=== PATIENT | female | born 1940 | race Caucasian/White ===

== ENCOUNTER → 2020-11-22 08:47 | Outpatient (BNVA) | payer MEDICARE, SELFPAY | PROVIDERS: PCP Nurse Practitioner Family; Visit Provider Nurse Practitioner Gerontology | DX: Z13.89 Encounter for screening for other disorder (principal) | CPT/HCPCS: Q3014 ==

== ENCOUNTER 2021-05-02 09:57 | Outpatient (REF) | payer MEDICARE, SELFPAY | END 2021-05-02 09:58 | disposition home or self-care (01) | LOC: HO.LAB 09:57 | PROVIDERS: PCP Nurse Practitioner Family; Visit Provider Nurse Practitioner Family | DX: Z13.89 Encounter for screening for other disorder (principal) ==

== ENCOUNTER 2022-02-28 11:09 | Outpatient (REF) | payer MEDICARE, SELFPAY ==
[2022-02-28 11:34] LABS: MANUAL DIFF FLAG NO
[2022-02-28 11:59] LABS: Basophils Percent Auto 0.2 % (0-2); Eosinophils Absolute Auto 0.3 X10*3/uL (0.0-0.4); Eosinophils Percent Auto 5.6 % (0-4); Hematocrit 30.6 % (37.0-47.0); Hemoglobin 8.9 g/dl (12.0-16.0); Imm Gran Abs Auto 0.02 X10*3/uL (0.00-0.03); Imm Gran Pct Auto 0.4 % (0.0-0.4); Lymphocytes Absolute Auto 1.6 X10*3/uL (1.2-4.9); Lymphocytes Percent Auto 33.5 % (20-40); Mean Corpuscular HGB Conc 29.1 g/dl (31.0-35.0); Mean Corpuscular Hemoglobin 22.6 pg (27.0-33.0); Mean Corpuscular Volume 77.9 fL (80.0-98.0); Mean Platelet Volume 11.8 fL (9.4-12.3); Monocytes Absolute Auto 0.3 X10*3/uL (0.1-1.2); Monocytes Percent Auto 6.2 % (2-11); Neutrophils Absolute Auto 2.5 x10*3/uL (2.0-8.3); Neutrophils Percent Auto 54.1 % (45-73); Platelet Count 121 X10*3/uL (160-400); Red Blood Count 3.93 X10*6/uL (4.20-5.50); Red Cell Distribution Width 17.1 % (11.0-16.0); White Blood Count 4.7 X10*3/uL (4.8-10.8)
[2022-02-28 12:13] LABS: Iron 36 mcg/dL (30-160); Percent Iron Saturation 9 % (15-50); Total Iron Binding Capacity 392 mcg/dL (228-428); Unsaturated Iron Binding 356 ug/dL
[2022-02-28 12:34] LABS: Thyroid Stimulating Hormone 2.81 uIU/mL (0.32-4.0)
[2022-02-28 12:40] LABS: Vitamin B12 590 pg/mL (200-900)
== END 2022-02-28 11:10 | disposition home or self-care (01) ==
LOC: HO.LAB 11:09
PROVIDERS: Visit Provider Nurse Practitioner Family
DX: E03.9 Hypothyroidism, unspecified (principal); D50.9 Iron deficiency anemia, unspecified
CPT/HCPCS: 36415; 82607; 83540; 84443; 85025

== ENCOUNTER 2022-06-11 09:26 | Outpatient (REF) | payer MEDICARE, SELFPAY ==
--- NOTE | ~2022-06-11 | XR_ITS ---
EXAMINATION: XR CHEST CLINICAL INFORMATION: Acute upper respiratory infection. COMPARISON: 05/15/2020 chest radiograph. TECHNIQUE: 2 views of the chest were obtained. FINDINGS: No significant abnormality is noted involving the heart, lungs, mediastinum, bony thorax or soft tissues. XR/XR chest 2V IMPRESSION: No acute cardiopulmonary process.
[2022-06-11 13:23] LABS: Influenza A PCR NEGATIVE (Negative); Influenza B PCR NEGATIVE (Negative); Resp Syncy Virus RNA Qual PCR NEGATIVE (Negative); SARS COV2 PCR INHOUSE NEGATIVE (Negative)
== END 2022-06-11 09:27 | disposition home or self-care (01) ==
LOC: HO.HMGCX 09:26
PROVIDERS: PCP Nurse Practitioner Family; Visit Provider Physician Assistant
DX: Z20.822 Contact with and (suspected) exposure to COVID-19 (principal); J06.9 Acute upper respiratory infection, unspecified
CPT/HCPCS: 0241U; 71046

== ENCOUNTER 2022-11-06 10:03 | Inpatient (IN) | payer MEDICARE, SELFPAY ==
--- NOTE | ~2022-11-06 | US_ITS ---
EXAMINATION: US RETROPERITONEAL LIMITED (RENAL ONLY) CLINICAL INFORMATION: Acute kidney injury.. COMPARISON: 11/09/2014 TECHNIQUE: Real-time sonographic imaging of the kidneys. FINDINGS: RIGHT KIDNEY: 8.9 x 4.9 x 4.5 cm (SAG x AP x TRV). The kidney is normal in size, contour, and echogenicity. Renal cortical thickness is normal. No calculi or focal parenchymal lesions. No hydronephrosis. LEFT KIDNEY: 10 x 4.3 x 5.1 cm (SAG x AP x TRV). The kidney is normal in size, contour, and echogenicity. Renal cortical thickness is normal. No calculi or focal parenchymal lesions. No hydronephrosis. US/US renal BI IMPRESSION: Normal appearance of the kidneys.
[2022-11-06 10:08] VITALS: BP 152/56; PULSE 86; RESP 18; TEMP 36.7; O2SAT 98; BMI 25.7
--- NOTE | 2022-11-06 10:10 | ECG_ITS ---
Test Reason : abnormal labs Blood Pressure : / mmHG Vent. Rate : 078 BPM Atrial Rate : 078 BPM P-R Int : 148 ms QRS Dur : 068 ms QT Int : 360 ms P-R-T Axes : 046 -04 068 degrees QTc Int : 410 ms Normal sinus rhythm Normal ECG When compared with ECG of 23-APR-2017 16:52, Nonspecific T wave abnormality, improved in Anterolateral leads Referred By: Generic ED Physician Electronically Signed By:Beto Walker
[2022-11-06 10:25] LABS: MANUAL DIFF FLAG NO
[2022-11-06 10:28] LABS: Basophils Percent Auto 0.4 % (0-2); Eosinophils Absolute Auto 0.3 X10*3/uL (0.0-0.4); Hematocrit 31.3 % (37.0-47.0); Hemoglobin 9.2 g/dl (12.0-16.0); Imm Gran Abs Auto 0.03 X10*3/uL (0.00-0.03); Imm Gran Pct Auto 0.6 % (0.0-0.4); Lymphocytes Absolute Auto 2.1 X10*3/uL (1.2-4.9); Lymphocytes Percent Auto 43.1 % (20-40); Mean Corpuscular HGB Conc 29.4 g/dl (31.0-35.0); Mean Corpuscular Hemoglobin 22.8 pg (27.0-33.0); Mean Corpuscular Volume 77.5 fL (80.0-98.0); Monocytes Absolute Auto 0.4 X10*3/uL (0.1-1.2); Monocytes Percent Auto 7.1 % (2-11); Neutrophils Absolute Auto 2.1 x10*3/uL (2.0-8.3); Neutrophils Percent Auto 42.8 % (45-73); Platelet Count 101 X10*3/uL (160-400); Red Blood Count 4.04 X10*6/uL (4.20-5.50); Red Cell Distribution Width 16.6 % (11.0-16.0)
[2022-11-06 11:20] LABS: Influenza A PCR NEGATIVE (Negative); Influenza B PCR NEGATIVE (Negative); Resp Syncy Virus RNA Qual PCR NEGATIVE (Negative); SARS COV2 PCR INHOUSE NEGATIVE (Negative)
--- NOTE | 2022-11-06 11:34 | ED_ITS ---
HPI - Recheck/Abnormal Lab/Rx General Chief Complaint: Recheck/Abnormal Lab/Rx Stated Complaint: High Potassium Time Seen by Provider: 11/06/22 10:42 Source: patient and family Mode of arrival: ambulatory History of Present Illness HPI narrative: 82-year-old female currently under care at [facility] has patient has a history of lymphoma and leukemia for which she is currently taking oral medication. She was instructed to come into the emergency room for acute labs that showed renal failure and elevated potassium. Patient herself denies any fever, chills, nausea, vomiting, shortness of breath, chest pain/palpitations and states that she has been eating and drinking normally. Patient denies any urinary pain/burning/frequency. The daughter endorses that patient is incontinent of urine. Also, patient has completed a course of antibiotics recently that was prescribed by her primary care provider. The daughter who is at bedside states that they have been keeping an eye on her but reports that she has been unsteady on her feet for approximately 3 days. Related Data Home Medications Medication Instructions Recorded Confirmed lorazepam 1 mg tablet 1 mg PO DAILY PRN 11/22/20 11/22/20 pen needle, diabetic 32 gauge x #50 ea 11/22/20 11/22/20 (BD Ultra-Fine Laura Pen Needle) quetiapine 25 mg tablet See Rx Instructions PO QID 11/22/20 11/22/20 Previous Rx's Medication Instructions Recorded atorvastatin 80 mg tablet 80 mg PO DAILY #90 tabs 11/22/20 insulin glargine 100 unit/mL (3 8 unit (0.08 mL) subcut DAILY 90 11/23/21 mL) subcutaneous pen (Lantus days #15 mL Solostar U-100 Insulin) metformin 500 mg tablet,extended 500 mg PO BID #180 caps 12/13/21 release 24 hr repaglinide 0.5 mg tablet See Rx Instructions PO TID 90 days 02/08/22 #450 tabs azithromycin 250 mg tablet See Rx Instructions PO .COMPLEX #6 06/11/22 tabs benzonatate 100 mg capsule 100 mg PO BID PRN cough #14 caps 06/11/22 Allergies Allergy/AdvReac Type Severity Reaction Status Date / Time prednisone [PREDNISONE] Allergy Severe ANAPHYLAXIS, Unverified 06/11/22 08:44 mental status change Amox Allergy Unknown ineffective Uncoded 06/11/22 08:44 Review of Systems Review of Systems: Pertinent positives and negatives as stated in HPI 10 point review of systems is otherwise negative. [facility] Past Medical History Source: nursing notes reviewed Medical History Controlled diabetes mellitus without complication, with long-term current use of insulin Controlled diabetes mellitus without complication, without long-term current use of insulin Essential hypertension Hyperlipidemia LDL goal <70 Hypothyroidism Leukemia Lymphoma Stroke Social History Social History Household Members: Spouse Household Members Other:: Spouse: Darnell Advance Directives: No Physical Exam Vital Signs: Vital Signs: Last Vital Signs Temp 98.0 F 11/06/22 10:08 Pulse 69 11/06/22 12:00 Resp 17 11/06/22 12:00 BP 150/54 H 11/06/22 12:00 Pulse Ox 100 11/06/22 12:00 O2 Del Method 11/06/22 12:00 BMI result Body Mass Index 25.7 VITAL SIGNS: Reviewed. GENERAL: Well developed, well nourished, in no acute distress. HEAD: Normocephalic/atraumatic EYES: PERRLA, EOMI EARS: Ext canals without abnormality OROPHARYNX: no oral lesions noted, posterior pharynx clear NECK: Supple, no adenopathy LUNGS: Normal breath sounds. No adventitious sounds or accessory muscle use. SpO2<98> CARDIOVASCULAR: Regular rate and rhythm with systolic murmur, no JVD or lower extremity edema. ABDOMEN: Soft, non-tender, non-distended with bowel sounds. MUSCULOSKELETAL: No tenderness, deformities, or effusions noted on gross inspection. EXTREMITIES: No cyanosis, clubbing or edema. SKIN: Inspection of the skin reveals no rashes NEUROLOGIC: Alert and oriented x 4. Strength and sensation to light touch were grossly intact x 4, no facial asymmetry, no pronator drift, cranial nerves 2-12 are grossly intact.. Course Course Course Narrative: On re-evaluation, patient continues to be chest pain-free, troponin #2 is flat at 90.2, BMP although improved still demonstrates a potassium level of 5.7 and minor improvement renal function. I am attempted to get records from [facility]. 1432: I gave patient 40 mg of Lasix to help promote removal of potassium. Magnesium levels are within normal limits. 1630: Signed out to Dr. Wheeler to follow-up on 3rd BMP after the Lasix with recommendations that if potassium has continued to decrease patient is a safe discharge to home as she is otherwise asymptomatic and can follow-up with her primary care provider 1st thing in the morning. Medications Administered Discontinued Medications Generic Name Dose Route Start Last Admin Trade Name Daisy PRN Reason Stop Dose Admin Dextrose 25 gm 11/06/22 11:46 11/06/22 12:15 Dextrose 50 % 25 Gm/50 Ml Syringe IVPUSH 11/06/22 11:47 25 gm ONCE ONE Administration Furosemide 40 mg 11/06/22 14:30 11/06/22 14:46 Furosemide 40 Mg/4 Ml Vial IVPUSH 11/06/22 14:31 40 mg ONCE ONE Administration Protocol Calcium Gluconate 2 gm in 100 mls @ 50 mls/hr 11/06/22 11:46 11/06/22 14:16 Calcium Gluconate IV 11/06/22 13:45 Infused ONCE ONE Infusion Sodium Chloride 1,000 mls @ 999 mls/hr 11/06/22 12:00 11/06/22 13:41 Ns IV 11/06/22 13:00 Infused .Q1H1M ARELI Infusion Insulin Human Regular 5 unit 11/06/22 11:46 11/06/22 12:14 Insulin Regular, Human 100 Unit/Ml 3 Ml Vial IVPUSH 11/06/22 11:47 5 unit ONCE ONE Administration Medical Decision Making Medical Decision Making [facility] Narrative: 82-year-old female is sent in for evaluation abnormal lab work and on history is noted to have recent gait unsteadiness and she has not completely fall in and there has been no history of head strike. Differential Diagnosis Urinary tract infection, obstructive uropathy, medication side effect, will rule out infection or new anemia Lab Data [facility] Lab Attestation statement: I reviewed the patient's lab results. SRIRAM/hyperkalemia: There is noted peaked T-waves, ordered calcium gluconate /insulin/D50 and will repeat EKG. Troponin-98.2, patient is not having chest pain, EKG does not demonstrate ischemic changes Result Diagrams: 11/06/22 10:19 11/06/22 13:44 Labs: Lab Results 12/21/22 12/21/22 12/21/22 Range/Units 10:19 10:19 10:19 WBC 5.0 (4.8-10.8) X10*3/uL RBC 4.04 L (4.20-5.50) X10*6/uL Hgb 9.2 L (12.0-16.0) g/dl Hct 31.3 L (37.0-47.0) % MCV 77.5 L (80.0-98.0) fL MCH 22.8 L (27.0-33.0) pg MCHC 29.4 L (31.0-35.0) g/dl RDW 16.6 H (11.0-16.0) % Plt Count 101 L (160-400) X10*3/uL MPV 12.0 (9.4-12.3) fL Immature Gran % (Auto) 0.6 H (0.0-0.4) % Neut % (Auto) 42.8 L (45-73) % Lymph % (Auto) 43.1 H (20-40) % [place] % (Auto) 7.1 (2-11) % Eos % (Auto) 6.0 H (0-4) % Baso % (Auto) 0.4 (0-2) % Lymph # (Auto) 2.1 (1.2-4.9) X10*3/uL [place] # (Auto) 0.4 (0.1-1.2) X10*3/uL Eos # (Auto) 0.3 (0.0-0.4) X10*3/uL Baso # (Auto) 0.0 (0.0-0.2) X10*3/uL Abs Immat Gran (auto) 0.03 (0.00-0.03) X10*3/uL Absolute Neuts (auto) 2.1 (2.0-8.3) x10*3/uL Absolute Nucleated RBC 0.000 (0.0-0.012) X10*3/uL Nucleated RBC % (auto) 0.0 (0.0-0.2) /100WBC Sodium 137 (135-145) mmol/L Potassium 6.7 H* (3.3-5.1) mmol/L Chloride 110 H (96-108) mmol/L Carbon Dioxide 22 (22-29) mmol/L Anion Gap 12 (12-20) BUN 39 H (9-16) mg/dL Creatinine 1.75 H (0.5-1.4) mg/dL Estim Creat Clear Calc 23.0 Estimated GFR 28 Random Glucose 214 H (60-115) mg/dL Calcium 9.3 (8.4-10.2) mg/dL Magnesium 1.8 (1.6-2.6) mg/dL Total Bilirubin 0.4 (0.0-1.0) mg/dL Direct Bilirubin < 0.2 (0.0-0.5) mg/dL AST 23 (5-31) U/L ALT 18 (0-31) U/L Alkaline Phosphatase 85 (39-117) U/L Troponin I High Sens 98.2 H* (<3.5-17.0) ng/L B-Natriuretic Peptide (<100) pg/mL Total Protein 6.7 (6.5-8.0) g/dL Albumin 4.2 (3.5-5.0) g/dL Lipase 26 (8-78) U/L Urine Color Urine Appearance Urine pH (5.0-9.0) Ur Specific [place] (1.005-1.025) Urine Protein (Neg-Trace) mg/dL Urine Glucose (UA) (Negative) mg/dL Urine Ketones (Negative) mg/dL Urine Blood (Negative) Urine Nitrite (Negative) Ur Leukocyte Esterase (Negative) Influenza Type A (PCR) (Negative) Influenza Type B (PCR) (Negative) RSV RNA Qual (PCR) (Negative) SARS-CoV-2 RNA (RT-PCR) (Negative) 11/06/22 11/06/22 11/06/22 Range/Units 10:19 10:19 12:00 WBC (4.8-10.8) X10*3/uL RBC (4.20-5.50) X10*6/uL Hgb (12.0-16.0) g/dl Hct (37.0-47.0) % MCV (80.0-98.0) fL MCH (27.0-33.0) pg MCHC (31.0-35.0) g/dl RDW (11.0-16.0) % Plt Count (160-400) X10*3/uL MPV (9.4-12.3) fL Immature Gran % (Auto) (0.0-0.4) % Neut % (Auto) (45-73) % Lymph % (Auto) (20-40) % [place] % (Auto) (2-11) % Eos % (Auto) (0-4) % Baso % (Auto) (0-2) % Lymph # (Auto) (1.2-4.9) X10*3/uL [place] # (Auto) (0.1-1.2) X10*3/uL Eos # (Auto) (0.0-0.4) X10*3/uL Baso # (Auto) (0.0-0.2) X10*3/uL Abs Immat Gran (auto) (0.00-0.03) X10*3/uL Absolute Neuts (auto) (2.0-8.3) x10*3/uL Absolute Nucleated RBC (0.0-0.012) X10*3/uL Nucleated RBC % (auto) (0.0-0.2) /100WBC Sodium (135-145) mmol/L Potassium (3.3-5.1) mmol/L Chloride (96-108) mmol/L Carbon Dioxide (22-29) mmol/L Anion Gap (12-20) BUN (9-16) mg/dL Creatinine (0.5-1.4) mg/dL Estim Creat Clear Calc Estimated GFR Random Glucose (60-115) mg/dL Calcium (8.4-10.2) mg/dL Magnesium (1.6-2.6) mg/dL Total Bilirubin (0.0-1.0) mg/dL Direct Bilirubin (0.0-0.5) mg/dL AST (5-31) U/L ALT (0-31) U/L Alkaline Phosphatase (39-117) U/L Troponin I High Sens (<3.5-17.0) ng/L B-Natriuretic Peptide 20 (<100) pg/mL Total Protein (6.5-8.0) g/dL Albumin (3.5-5.0) g/dL Lipase (8-78) U/L Urine Color Yellow Urine Appearance Clear Urine pH 5.0 (5.0-9.0) Ur Specific [place] 1.020 (1.005-1.025) Urine Protein Negative (Neg-Trace) mg/dL Urine Glucose (UA) Negative (Negative) mg/dL Urine Ketones Negative (Negative) mg/dL Urine Blood Negative (Negative) Urine Nitrite Negative (Negative) Ur Leukocyte Esterase Negative (Negative) Influenza Type A (PCR) NEGATIVE (Negative) Influenza Type B (PCR) NEGATIVE (Negative) RSV RNA Qual (PCR) NEGATIVE (Negative) SARS-CoV-2 RNA (RT-PCR) NEGATIVE (Negative) 11/06/22 11/06/22 Range/Units 13:44 13:44 WBC (4.8-10.8) X10*3/uL RBC (4.20-5.50) X10*6/uL Hgb (12.0-16.0) g/dl Hct (37.0-47.0) % MCV (80.0-98.0) fL MCH (27.0-33.0) pg MCHC (31.0-35.0) g/dl RDW (11.0-16.0) % Plt Count (160-400) X10*3/uL MPV (9.4-12.3) fL Immature Gran % (Auto) (0.0-0.4) % Neut % (Auto) (45-73) % Lymph % (Auto) (20-40) % [place] % (Auto) (2-11) % Eos % (Auto) (0-4) % Baso % (Auto) (0-2) % Lymph # (Auto) (1.2-4.9) X10*3/uL [place] # (Auto) (0.1-1.2) X10*3/uL Eos # (Auto) (0.0-0.4) X10*3/uL Baso # (Auto) (0.0-0.2) X10*3/uL Abs Immat Gran (auto) (0.00-0.03) X10*3/uL Absolute Neuts (auto) (2.0-8.3) x10*3/uL Absolute Nucleated RBC (0.0-0.012) X10*3/uL Nucleated RBC % (auto) (0.0-0.2) /100WBC Sodium 140 (135-145) mmol/L Potassium 5.7 H (3.3-5.1) mmol/L Chloride 114 H (96-108) mmol/L Carbon Dioxide 22 (22-29) mmol/L Anion Gap 10 L (12-20) BUN 36 H (9-16) mg/dL Creatinine 1.46 H (0.5-1.4) mg/dL Estim Creat Clear Calc 27.6 Estimated GFR 34 Random Glucose 85 (60-115) mg/dL Calcium 9.4 (8.4-10.2) mg/dL Magnesium (1.6-2.6) mg/dL Total Bilirubin (0.0-1.0) mg/dL Direct Bilirubin (0.0-0.5) mg/dL AST (5-31) U/L ALT (0-31) U/L Alkaline Phosphatase (39-117) U/L Troponin I High Sens 90.6 H* (<3.5-17.0) ng/L B-Natriuretic Peptide (<100) pg/mL Total Protein (6.5-8.0) g/dL Albumin (3.5-5.0) g/dL Lipase (8-78) U/L Urine Color Urine Appearance Urine pH (5.0-9.0) Ur Specific [place] (1.005-1.025) Urine Protein (Neg-Trace) mg/dL Urine Glucose (UA) (Negative) mg/dL Urine Ketones (Negative) mg/dL Urine Blood (Negative) Urine Nitrite (Negative) Ur Leukocyte Esterase (Negative) Influenza Type A (PCR) (Negative) Influenza Type B (PCR) (Negative) RSV RNA Qual (PCR) (Negative) SARS-CoV-2 RNA (RT-PCR) (Negative) Independent Interpretation I performed an independent interpretation of an: EKG Interpretation: Normal sinus rhythm, HR -78, no STEMI, apparent peaked T-waves, NV/QRS/QTC are within normal limits. 1254: NSR, HR-69, NO STEMI, T-WAVES HAVE IMPROVED, NV/QRS/QTC ARE WITHIN NORMAL LIMITS. Independent Historian Clinical information obtained from an independent historian. History obtained from or confirmed by: Other Daughter External Record Review External record reviewed: Prior outpatient labs Chronic Conditions Patient?s care impacted by: Diabetes, Hypertension and Cancer Critical Care Time Critical Care Time Critical Care Time: Yes Total Critical Care Time: 60 Attestation: I personally attest to this time spent taking care of the patient. Discharge Plan Discharge Clinical Impression: SRIRAM (acute kidney injury), Hyperkalemia Patient Disposition: Still a Patient Prescriptions: No Action Lantus Solostar U-100 Insulin 100 unit/mL (3 mL) insulin pen 8 unit subcut DAILY 90 Days Qty: 15 0RF metformin 500 mg tablet extended release 24 hr 500 mg PO BID Qty: 180 4RF repaglinide 0.5 mg tablet See Rx Instructions PO TID 90 Days Qty: 450 0RF Rx Instructions: 1 tablet breakfast, 2 tablet lunch and dinner PO 3 times a day; administer within 30 minutes of a meal or snack benzonatate 100 mg capsule 100 mg PO BID PRN (Reason: cough) Qty: 14 0RF azithromycin 250 mg tablet See Rx Instructions PO .COMPLEX Qty: 6 0RF Rx Instructions: For 250 mg dose pack: take 500 mg today (day 1), then 250 mg for 4 days (days 2-5) PO (DME) pen needle, diabetic [BD Ultra-Fine Laura Pen Needle] 32 gauge x 5/32 needle See Rx Instructions .ROUTE .MEDSUPPLY Qty: 50 Rx Instructions: As directed quetiapine 25 mg tablet See Rx Instructions PO QID Rx Instructions: 25 mg 1/2 tablet PO 4 times a day; lorazepam 1 mg tablet 1 mg PO DAILY PRN atorvastatin 80 mg tablet 80 mg PO DAILY Qty: 90 1RF
[2022-11-06 11:37] LABS: Troponin-I High Sensitivity 98.2 ng/L (<3.5-17.0)
[2022-11-06 11:40] LABS: Alanine Aminotransferase 18 U/L (0-31); Albumin Level 4.2 g/dL (3.5-5.0); Alkaline Phosphatase 85 U/L (39-117); Anion Gap 12 (12-20); Aspartate Amino Transferase 23 U/L (5-31); Bilirubin Direct < 0.2 mg/dL (0.0-0.5); Bilirubin Total 0.4 mg/dL (0.0-1.0); Blood Urea Nitrogen 39 mg/dL (9-16); Calcium 9.3 mg/dL (8.4-10.2); Carbon Dioxide 22 mmol/L (22-29); Chloride 110 mmol/L (96-108); Estimated Glomerular Filt Rate 28; Glucose Random 214 mg/dL (60-115); Lipase 26 U/L (8-78); Potassium 6.7 mmol/L (3.3-5.1); Sodium 137 mmol/L (135-145); Total Protein 6.7 g/dL (6.5-8.0)
[2022-11-06 12:00] VITALS: BP 150/54; PULSE 69; RESP 17; O2SAT 100
[2022-11-06 12:09] LABS: Appearance Urine Clear; Color Urine Yellow; Glucose Urine UA Negative (Negative); Leukocyte Esterase Urine Negative (Negative); Nitrite Urine Negative (Negative); Urine Blood Negative (Negative); Urine Ketones Negative (Negative); Urine Protein Negative (Neg-Trace)
[2022-11-06] MEDS: Insulin Regular, Human 100 UNIT/ML 3 ML VIAL IVPUSH (12:14)
[2022-11-06] MEDS: Dextrose 50 % 25 GM/50 ML SYRINGE IVPUSH (12:15)
[2022-11-06] MEDS: Calcium Gluconate/NaCl,Iso-Osm 2 GM/100 ML PLAST..BAG IV (12:15)
[2022-11-06] MEDS: 0.9 % Sodium Chloride 1,000 ML 999 ML IV (12:16)
--- NOTE | 2022-11-06 12:27 | PC.NURSE ---
pt a&ox2 - at baseline per daughter, vss, 22G IV placed L AC, medicated per provider order. no new orders at this time.
[2022-11-06 12:42] LABS: Magnesium 1.8 mg/dL (1.6-2.6)
--- NOTE | 2022-11-06 12:51 | ECG_ITS ---
Test Reason : repeat Blood Pressure : / mmHG Vent. Rate : 069 BPM Atrial Rate : 069 BPM P-R Int : 160 ms QRS Dur : 070 ms QT Int : 366 ms P-R-T Axes : 040 018 124 degrees QTc Int : 392 ms Normal sinus rhythm Nonspecific T wave abnormality Abnormal ECG When compared with ECG of 06-NOV-2022 10:27, Nonspecific T wave abnormality now evident in Inferior leads Referred By: Jerri Francis Electronically Signed By:Beto Walker
[2022-11-06 12:58] LABS: B Type Natriuretic Peptide 20 pg/mL (<100)
[2022-11-06 14:08] LABS: Anion Gap 10 (12-20); Blood Urea Nitrogen 36 mg/dL (9-16); Calcium 9.4 mg/dL (8.4-10.2); Carbon Dioxide 22 mmol/L (22-29); Chloride 114 mmol/L (96-108); Creatinine Clr Calc Pharmacy 27.6; Estimated Glomerular Filt Rate 34; Glucose Random 85 mg/dL (60-115); Potassium 5.7 mmol/L (3.3-5.1); Sodium 140 mmol/L (135-145)
[2022-11-06 14:24] LABS: Troponin-I High Sensitivity 90.6 ng/L (<3.5-17.0)
[2022-11-06] MEDS: Furosemide 40 MG/4 ML VIAL IVPUSH (14:46)
--- NOTE | 2022-11-06 15:04 | PC.NURSE ---
per daughter - labs 07/30/22, K - 5, BUN - 26, CRE - 1.3. provider notified.
[2022-11-06 16:47] LABS: Anion Gap 14 (12-20); Blood Urea Nitrogen 37 mg/dL (9-16); Calcium 9.9 mg/dL (8.4-10.2); Carbon Dioxide 20 mmol/L (22-29); Chloride 113 mmol/L (96-108); Creatinine Clr Calc Pharmacy 25.2; Estimated Glomerular Filt Rate 31; Glucose Random 66 mg/dL (60-115); Potassium 5.8 mmol/L (3.3-5.1); Sodium 141 mmol/L (135-145)
[2022-11-06 17:09] VITALS: BP 164/57; PULSE 73; RESP 22; O2SAT 97
[2022-11-06] MEDS: Albuterol Sulfate (0.083%) 2.5 MG/3 ML VIAL.NEB 10 MG INHALE (17:14)
[2022-11-06 17:15] VITALS: PULSE 72; RESP 17; O2SAT 98
[2022-11-06] MEDS: Sodium Zirconium Cyclosilicate 10 GM POWD.PACK PO (17:58)
--- NOTE | 2022-11-06 18:15 | P.HPHOSP_ITS ---
History of Present Illness Date of Service: 11/06/22 Chief Complaint: Hyperkalemia 82 year old female with past medical history as listed below inlcuding history of lymphoma and leukemia (no details), DM, h/o stroke with residual aphasia and apraxia who had routine lab work done at her oncology office at [facility] and was called for a critical potassium and Creatinine level but was told she could wait till the next day to go to ED. She came in at 10 this morning and her potassium was 6.7. She was treated with insulin, calcium gluconate, lasix , albuterol Neb and repeat K at 5.8 at 1600 and is now getting Lokelma. Her Creatine ranges from 1.4 to 1.6, baseline is not available (she goes to [facility]). Apart from abnrmal labs she has no other complaint, she takes no K supplement or consumes food high in K Review of Systems Review of Systems: Gen: no fever Resp: no sob, no cough CV: no chest, no OBREGON, no leg edema GI: No n/v, no abd pain Neuro: No confusion Yes all other systems are reviewed and are negative ON LICENSE OF [facility] Medical History Controlled diabetes mellitus without complication, with long-term current use of insulin Controlled diabetes mellitus without complication, without long-term current use of insulin Essential hypertension Hyperlipidemia LDL goal <70 Hypothyroidism Leukemia Lymphoma Stroke Pertinent family history: no mention of chronic kidney disease Social History Household Members: Spouse Household Members Other:: Spouse: Darnell Advance Directives: No Meds Allergies Allergy/AdvReac Type Severity Reaction Status Date / Time prednisone [PREDNISONE] Allergy Severe ANAPHYLAXIS, Unverified 06/11/22 08:44 mental status change Amox Allergy Unknown ineffective Uncoded 06/11/22 08:44 Home Medications Medication Instructions Recorded Confirmed Last Taken Type lorazepam 1 mg tablet 1 mg PO DAILY PRN 11/22/20 11/22/20 Unknown History pen needle, diabetic 32 gauge x #50 ea 11/22/20 11/22/20 Unknown History (BD Ultra-Fine Laura Pen Needle) quetiapine 25 mg tablet See Rx Instructions PO QID 11/22/20 11/22/20 Unknown History Physical Exam Vital Signs and Narrative: Vital Signs: Last Vital Signs Temp 98.0 F 11/06/22 10:08 Pulse 72 11/06/22 17:15 Resp 17 11/06/22 17:15 BP 164/57 H 11/06/22 17:09 Pulse Ox 97 11/06/22 17:09 O2 Del Method 11/06/22 17:09 BMI result Body Mass Index 25.7 Const: Other: Constitutional: Alert, in no distress, Mental Status: Oriented to person, place and time. Eyes: Pupils are equal, round and reactive to light. Ear, Nose and Throat: Oropharynx clear, mucous membranes moist. Ears and nose without eformities. Trachea midline. Respiratory: Clear to auscultation. No wheezing, rales or rhonchi. Cardiovascular: S1 S2 regular. No murmurs, rubs or gallops. Gastrointestinal: Abdomen soft, non-tender, non-distended. Normal bowel sounds.? Neurologic: Cranial nerves II-XII grossly intact. No focal neurological deficits. Moves all extremities spontaneously.? Skin: No rashes or lesions.? Musculoskeletal: No cyanosis or clubbing. Psychiatric: Normal mood and affect? Results Labs CBC and Chem 7: 11/06/22 10:19 11/06/22 16:24 Labs: Laboratory Results - last 24 hr 11/06/22 11/06/22 11/06/22 10:19 10:19 10:19 MCV 77.5 L MCH 22.8 L MCHC 29.4 L RDW 16.6 H Plt Count 101 L MPV 12.0 Immature Gran % (Auto) 0.6 H Neut % (Auto) 42.8 L Lymph % (Auto) 43.1 H [place] % (Auto) 7.1 Eos % (Auto) 6.0 H Baso % (Auto) 0.4 Lymph # (Auto) 2.1 [place] # (Auto) 0.4 Eos # (Auto) 0.3 Baso # (Auto) 0.0 Abs Immat Gran (auto) 0.03 Absolute Neuts (auto) 2.1 Absolute Nucleated RBC 0.000 Nucleated RBC % (auto) 0.0 Anion Gap 12 Estim Creat Clear Calc 23.0 Estimated GFR 28 Random Glucose 214 H Calcium 9.3 Magnesium 1.8 Total Bilirubin 0.4 Direct Bilirubin < 0.2 AST 23 ALT 18 Alkaline Phosphatase 85 Troponin I High Sens 98.2 H* B-Natriuretic Peptide Total Protein 6.7 Albumin 4.2 Lipase 26 Urine Color Urine Appearance Urine pH Ur Specific [place] Urine Protein Urine Glucose (UA) Urine Ketones Urine Blood Urine Nitrite Ur Leukocyte Esterase Influenza Type A (PCR) Influenza Type B (PCR) RSV RNA Qual (PCR) SARS-CoV-2 RNA (RT-PCR) 11/06/22 11/06/22 11/06/22 10:19 10:19 12:00 MCV MCH MCHC RDW Plt Count MPV Immature Gran % (Auto) Neut % (Auto) Lymph % (Auto) [place] % (Auto) Eos % (Auto) Baso % (Auto) Lymph # (Auto) [place] # (Auto) Eos # (Auto) Baso # (Auto) Abs Immat Gran (auto) Absolute Neuts (auto) Absolute Nucleated RBC Nucleated RBC % (auto) Anion Gap Estim Creat Clear Calc Estimated GFR Random Glucose Calcium Magnesium Total Bilirubin Direct Bilirubin AST ALT Alkaline Phosphatase Troponin I High Sens B-Natriuretic Peptide 20 Total Protein Albumin Lipase Urine Color Yellow Urine Appearance Clear Urine pH 5.0 Ur Specific [place] 1.020 Urine Protein Negative Urine Glucose (UA) Negative Urine Ketones Negative Urine Blood Negative Urine Nitrite Negative Ur Leukocyte Esterase Negative Influenza Type A (PCR) NEGATIVE Influenza Type B (PCR) NEGATIVE RSV RNA Qual (PCR) NEGATIVE SARS-CoV-2 RNA (RT-PCR) NEGATIVE 11/06/22 11/06/22 11/06/22 13:44 13:44 16:24 MCV MCH MCHC RDW Plt Count MPV Immature Gran % (Auto) Neut % (Auto) Lymph % (Auto) [place] % (Auto) Eos % (Auto) Baso % (Auto) Lymph # (Auto) [place] # (Auto) Eos # (Auto) Baso # (Auto) Abs Immat Gran (auto) Absolute Neuts (auto) Absolute Nucleated RBC Nucleated RBC % (auto) Anion Gap 10 L 14 Estim Creat Clear Calc 27.6 25.2 Estimated GFR 34 31 Random Glucose 85 66 Calcium 9.4 9.9 Magnesium Total Bilirubin Direct Bilirubin AST ALT Alkaline Phosphatase Troponin I High Sens 90.6 H* B-Natriuretic Peptide Total Protein Albumin Lipase Urine Color Urine Appearance Urine pH Ur Specific [place] Urine Protein Urine Glucose (UA) Urine Ketones Urine Blood Urine Nitrite Ur Leukocyte Esterase Influenza Type A (PCR) Influenza Type B (PCR) RSV RNA Qual (PCR) SARS-CoV-2 RNA (RT-PCR) Assessment and Plan (1) SRIRAM (acute kidney injury): Status: Acute (2) Hyperkalemia: Status: Acute (3) Controlled diabetes mellitus without complication, with long-term current use of insulin: Status: Acute (4) Essential hypertension: Status: Acute (5) Hyperlipidemia LDL goal <70: Status: Acute (6) Controlled diabetes mellitus without complication, without long-term current use of insulin: Status: Acute Plan 82 year old female with past medical history as listed below inlcuding history of lymphoma and leukemia (no details), DM, h/o stroke with residual aphasia and apraxia here with SRIRAM and hyperkalemia #Hyperkalemia--liekely related to kidney failure--treated thus far with lokelma, insulin, calcium gluconate, high dose albuterol. Repeat labs later and give additional Lokelma, involve nephrology, need to rule out RTA4 #SRIRAM--baseline Cr not well defined, but I suspect at least CKD 2, we'll need to compare to [facility] record #elevated troponin I 98 -->90, ECG no acute ischemic changes, no symptoms likely from renal failure, no further testing at this time #Diabetes--Hold metformin, SSI, continue home dose of lantus 8 #HLD--Lipitor #Anxiety--Ativan Full code DVT: heparin obs till tomorrow med rec not yet done Time Spent With Patient Time: Total time managing care of this patient today ____ minutes. Quality Stroke Does the patient have a stroke diagnosis?: No VTE Prior VTE?: No VTE Risk Level:: Medical - moderate - high VTE Device Contraindication: Treatment Not Indicated VTE Drug Contraindication: N/A - Med Ordered
[2022-11-06 18:43] VITALS: BP 165/51; PULSE 76; RESP 16
--- NOTE | 2022-11-06 18:55 | PHA.MEDREC ---
Pharmacy Consult ? Medication Reconciliation Pharmacy has completed the medication reconciliation. Spoke with patient, daughter and spouse. patient took all AM medications. Patients provided a list and [facility] to [facility].
[2022-11-06 20:29] LABS: Anion Gap 15 (12-20); Blood Urea Nitrogen 37 mg/dL (9-16); Calcium 9.5 mg/dL (8.4-10.2); Carbon Dioxide 19 mmol/L (22-29); Chloride 110 mmol/L (96-108); Creatinine Clr Calc Pharmacy 23.5; Estimated Glomerular Filt Rate 29; Glucose Random 216 mg/dL (60-115); Potassium 5.8 mmol/L (3.3-5.1); Sodium 138 mmol/L (135-145)
[2022-11-06 20:56] VITALS: BP 132/56; PULSE 83; RESP 17; TEMP 37.2; O2SAT 96
--- NOTE | 2022-11-06 21:31 | MHC.CM.PN ---
CATHERINE 11/06. Lives with and daughter, Gena [place] ([phone]). Pt has h/o CVA and expressive aphasia/apraxia. HCP is daughter Gena. Copy at home. Pt lives with her and daughter. When asked, pt said she lives with her parents and siblings. No documented dementia, ? aphasia/apraxia. Pt uses a walker/No services. Pfizer x2 & 3 boosters. Daughter is concerned about mobility, telling CM that patient has been more unsteady on her feet over the past few days and is requesting PT evaluation. Dr. Ocasio aware. Pt and daughter agreeable to home PT only. Has has [facility] in the past. Will place referrals. Daughter refuses STR, as she feels her mother cannot express herself fully and the family is providing all her care at home. States she feels they are doing well and do not need any services. CM will follow for discharge planning.
[2022-11-06 21:48] LABS: Glucose, Whole Blood 243 mg/dL (60-115)
[2022-11-06] MEDS: Insulin Lispro 100 UNIT/ML 3 ML VIAL SUBCUT (21:51)
[2022-11-06] MEDS: Heparin Sodium,Porcine 5,000 UNIT/ML VIAL 5000 UNIT SUBCUT (21:51)
[2022-11-06 22:33] LABS: Anion Gap 14 (12-20); Carbon Dioxide 20 mmol/L (22-29); Chloride 110 mmol/L (96-108); Potassium 5.9 mmol/L (3.3-5.1); Sodium 138 mmol/L (135-145)
[2022-11-06] MEDS: 0.9 % Sodium Chloride Flush 3 ML SYRINGE IVFLUSH (23:32)
[2022-11-07 02:29] VITALS: BP 132/55; PULSE 77; RESP 18; TEMP 36.2; O2SAT 95
--- NOTE | 2022-11-07 02:30 | MHC.EDTECH ---
pt is resting in and out of sleep her is with her,vitals were taken, a commode was put in the room for her toileting
--- NOTE | 2022-11-07 03:22 | MHC.EDTECH ---
pt went to BR assisted to commode by her and back to bed
[2022-11-07 05:22] LABS: Anion Gap 13 (12-20); Blood Urea Nitrogen 38 mg/dL (9-16); Calcium 9.5 mg/dL (8.4-10.2); Carbon Dioxide 22 mmol/L (22-29); Chloride 111 mmol/L (96-108); Creatinine Clr Calc Pharmacy 23.7; Estimated Glomerular Filt Rate 29; Glucose Random 160 mg/dL (60-115); Potassium 5.4 mmol/L (3.3-5.1); Sodium 141 mmol/L (135-145)
--- NOTE | 2022-11-07 05:37 | MHC.EDTECH ---
pt is just relaxing next to her vitals taken no issues
[2022-11-07 07:13] VITALS: BP 162/79; PULSE 84; RESP 21; O2SAT 96
[2022-11-07 07:24] LABS: Glucose, Whole Blood 207 mg/dL (60-115)
[2022-11-07] MEDS: Heparin Sodium,Porcine 5,000 UNIT/ML VIAL 5000 UNIT SUBCUT ×2 (07:54→21:41)
[2022-11-07] MEDS: Insulin Lispro 100 UNIT/ML 3 ML VIAL SUBCUT ×3 (07:54→21:40)
--- NOTE | 2022-11-07 07:58 | PC.NURSE ---
pt. alert, disoriented as to place and time. spouse and daughter at bedside. gave her insulin and heparin subq
--- NOTE | 2022-11-07 09:07 | PM.CNNEP ---
History of Present Illness Reason for Consult Consult date: 11/07/22 Chief Complaint Chief complaint: hyperkalemia Review of Systems Review of Systems Gen: no fever Resp: no sob, no cough CV: no chest, no OBREGON, no leg edema GI: No n/v, no abd pain Neuro: No confusion Yes all other systems are reviewed and are negative [facility] Past Medical History Medical History Controlled diabetes mellitus without complication, with long-term current use of insulin Controlled diabetes mellitus without complication, without long-term current use of insulin Essential hypertension Hyperlipidemia LDL goal <70 Hypothyroidism Leukemia Lymphoma Stroke Social History Social History Household Members: Spouse Household Members Other:: Spouse: Darnell Smoked in Last 30 Days: No Advance Directives: No service: No Current occupational status: retired Meds Allergies Allergy/AdvReac Type Severity Reaction Status Date / Time prednisone [PREDNISONE] Allergy Severe ANAPHYLAXIS, Verified 11/06/22 21:51 mental status change Amox Allergy Unknown ineffective Uncoded 06/11/22 08:44 Active Medications: Current Medications Aspirin (Aspirin Enteric Coated 81 Mg Tablet.Dr) 81 mg PO DAILY@1700 [facility] Atorvastatin Calcium (Atorvastatin Calcium 40 Mg Tablet) 40 mg PO DAILY@1200 [facility] Heparin Sodium (Porcine) (Heparin Sodium,Porcine 5,000 Unit/Ml Vial) 5,000 unit SUBCUT Q12H [facility] Last Admin: 11/07/22 07:54 Dose: 5,000 unit Insulin Glargine (Insulin Glargine,Hum.Rec.Anlog 100 Unit/Ml 10 Ml Vial) 10 unit SUBCUT BEDTIME [facility] Insulin Human Lispro (Insulin Lispro 100 Unit/Ml 3 Ml Vial) 0 unit SUBCUT QIDACHS [facility]; Protocol Last Admin: 11/07/22 07:54 Dose: 4 unit Levothyroxine Sodium (Levothyroxine Sodium 100 Mcg Tablet) 100 mcg PO DAILY@0600 [facility] Lisinopril (Lisinopril 20 Mg Tablet) 20 mg PO DAILY [facility]; Protocol Lorazepam (Lorazepam 1 Mg Tablet) 1 mg PO TID PRN PRN Reason: Anxiety Melatonin (Melatonin 3 Mg Tablet) 6 mg PO BEDTIME PRN PRN Reason: Insomnia Melatonin (Melatonin 3 Mg Tablet) 3 mg PO BEDTIME [facility] Metformin HCl (Metformin Hcl Er 500 Mg Tab.Er.24h) 500 mg PO BIDWM [facility] Non-Formulary Medication (Repaglinide) 0.5 mg PO DAILY [facility] Non-Formulary Medication (Repaglinide) 1 mg PO BID@1200,1700 [facility] Olanzapine (Olanzapine 2.5 Mg Tablet) 2.5 mg PO BEDTIME [facility] Paroxetine HCl (Paroxetine Hcl 40 Mg Tablet) 40 mg PO DAILY@1200 [facility] Pharmacy Consult (Consult Rx Perform Med Rec) 1 each MISCELLANE ONCE PRN PRN Reason: Consult order Quetiapine Fumarate (Quetiapine Fumarate 25 Mg Tablet) 12.5 mg PO QID [facility] Sodium Zirconium Cyclosilicate (Sodium Zirconium Cyclosilicate 10 Gm Powd.Pack) 10 gm PO DAILY [facility] Home Medications Medication Instructions Recorded Confirmed Last Taken Type lorazepam 1 mg tablet 1 mg PO TID PRN Anxiety 11/22/20 11/06/22 Unknown History pen needle, diabetic 32 gauge x #50 ea 11/22/20 11/22/20 Unknown History (BD Ultra-Fine Laura Pen Needle) aspirin 81 mg tablet,delayed 81 mg PO DAILY@1700 11/06/22 11/06/22 11/05/22 History release atorvastatin 40 mg tablet 40 mg PO DAILY@1200 11/06/22 11/06/22 11/05/22 History insulin glargine 100 unit/mL (3 15 unit subcut BEDTIME 11/06/22 11/06/22 11/05/22 History mL) subcutaneous pen (Lantus Solostar U-100 Insulin) levothyroxine 100 mcg tablet 100 mcg PO DAILY@0600 11/06/22 11/06/22 11/06/22 History lisinopril 20 mg tablet 20 mg PO DAILY 11/06/22 11/06/22 11/06/22 History melatonin 3 mg tablet 3 mg PO BEDTIME 11/06/22 11/06/22 11/05/22 History metformin 500 mg tablet,extended 500 mg PO BIDWM 11/06/22 11/06/22 11/06/22 History release 24 hr olanzapine 2.5 mg tablet 2.5 mg PO BEDTIME 11/06/22 11/06/22 11/05/22 History paroxetine HCl 40 mg tablet 40 mg PO DAILY@1200 12/11/06/22 11/05/22 History quetiapine 25 mg tablet 12.5 mg PO QID 11/06/22 11/06/22 11/06/22 History repaglinide 0.5 mg tablet 0.5 mg PO DAILY 11/06/22 11/06/22 11/06/22 History repaglinide 0.5 mg tablet 1 mg PO BID@1200,1700 11/06/22 11/06/22 11/05/22 History Physical Exam Vital Signs: Last Vital Signs Temp 97.2 F 11/07/22 02:29 Pulse 84 11/07/22 07:13 Resp 21 H 11/07/22 07:13 BP 162/79 H 11/07/22 07:13 Pulse Ox 96 11/07/22 07:13 O2 Del Method 11/07/22 07:13 BMI result Body Mass Index 25.7 Results Lab Results Result Diagrams: 11/06/22 10:19 11/07/22 04:33 Lab results: Chemistry 11/06/22 11/06/22 11/06/22 10:19 13:44 16:24 Sodium 137 140 141 Potassium 6.7 H* 5.7 H 5.8 H Carbon Dioxide 22 22 20 L BUN 39 H 36 H 37 H Creatinine 1.75 H 1.46 H 1.60 H Calcium 9.3 9.4 9.9 11/06/22 11/06/22 11/07/22 20:06 22:08 04:33 Sodium 138 138 141 Potassium 5.8 H 5.9 H 5.4 H Carbon Dioxide 19 L 20 L 22 BUN 37 H 38 H Creatinine 1.71 H 1.70 H Calcium 9.5 9.5 Hematology 11/06/22 10:19 WBC 5.0 Hgb 9.2 L Plt Count 101 L Urinalysis 11/06/22 12:00 Urine Color Yellow Urine Appearance Clear Urine pH 5.0 Ur Specific [place] 1.020 Urine Protein Negative Urine Glucose (UA) Negative Urine Ketones Negative Urine Blood Negative Urine Nitrite Negative Ur Leukocyte Esterase Negative Assessment and Plan (1) SRIRAM (acute kidney injury): Status: Acute This is a patient we are asked to see for acute kidney injury she is noted to be anemic she presents with acute kidney injury with prior creatinines being 1.1 2 years ago 1.46 on admission 1.7 today stable from yesterday hyperkalemic with a potassium of 5.4 as high as 5.8 urine benign without any significant proteinuria I recommend we continue giving her IV IV fluids treat hyperkalemia with Lokelma get a renal ultrasound check her iron stores I will place these orders (2) Hyperkalemia: Status: Acute (3) Controlled diabetes mellitus without complication, with long-term current use of insulin: Status: Acute (4) Essential hypertension: Status: Acute (5) Hyperlipidemia LDL goal <70: Status: Acute (6) Controlled diabetes mellitus without complication, without long-term current use of insulin: Status: Acute Plan 82 year old female with past medical history as listed below inlcuding history of lymphoma and leukemia (no details), DM, h/o stroke with residual aphasia and apraxia here with SRIRAM and hyperkalemia #Hyperkalemia--liekely related to kidney failure--treated thus far with lokelma, insulin, calcium gluconate, high dose albuterol. Repeat labs later and give additional Lokelma, involve nephrology, need to rule out RTA4 #SRIRAM--baseline Cr not well defined, but I suspect at least CKD 2, we'll need to compare to [facility] record #elevated troponin I 98 -->90, ECG no acute ischemic changes, no symptoms likely from renal failure, no further testing at this time #Diabetes--Hold metformin, SSI, continue home dose of lantus 8 #HLD--Lipitor #Anxiety--Ativan Full code DVT: heparin obs till tomorrow med rec not yet done Time Spent With Patient Time: Total time managing care of this patient today ____ minutes. Procedures Date of Service Date of Service: 11/07/22
[2022-11-07 10:06] LABS: Ferritin 14 ng/mL (10-250); Iron 31 mcg/dL (30-160); Percent Iron Saturation 10 % (15-50); Total Iron Binding Capacity 318 mcg/dL (228-428); Unsaturated Iron Binding 287 ug/dL
[2022-11-07] MEDS: lisinopriL 20 MG TABLET PO (10:20)
[2022-11-07] MEDS: Sodium Zirconium Cyclosilicate 10 GM POWD.PACK PO (10:21)
[2022-11-07] MEDS: LORazepam 1 MG TABLET PO ×2 (10:33→19:52)
[2022-11-07] MEDS: Insulin Glargine,Hum.rec.anlog 100 UNIT/ML 10 ML VIAL 10 UNIT SUBCUT ×2 (10:34→21:39)
[2022-11-07] MEDS: QUEtiapine Fumarate 25 MG TABLET PO ×3 (10:35→21:39)
[2022-11-07] MEDS: Atorvastatin Calcium 40 MG TABLET PO (11:34)
[2022-11-07] MEDS: PARoxetine HCL 40 MG TABLET PO (11:34)
[2022-11-07] MEDS: 0.9 % Sodium Chloride 500 ML 100 ML IV (11:35)
--- NOTE | 2022-11-07 11:43 | PC.NURSE ---
pt alert but confused. pt's daughter asked for Lorazepam earlier, she stated pt was very anxious and wanted to leave. assessed effectiveness now and pt was more calm. per pt's daughter Lorazepam was somewhat effective.
--- OUTSIDE RECORDS SUMMARY | 2022-11-07 12:50 | XMS_ITS | Continuity of Care Document ---
:1940 Author Organization [facility] Address [address] [place] [id number]- Care Team Providers Name Role Phone Pradeep ARRIETA, Teri Yusuf Primary Care Physician Encounter [facility] [place] [facility] R [id number] Date(s): 10/16/21 - 11/16/[address] [address]- Attending Physician: Aubree Castro MD Admitting Physician: Aubree Castro MD Referring Physician: Aubree Castro MD Allergies, Adverse Reactions, Alerts Substance Reaction Severity Status predniSONE1 Active 1increased blood sugar, mood changes Immunizations Given and Recorded Vaccine Date Status Refusal Reason pneumococcal 23-valent vaccine 03/16/14 Given pneumococcal 13-valent vaccine 01/19/14 Given Medications Adult Aspirin 81 mg oral tablet, chewable 1 tablet = 81 mg, Daily, 0 Refills, Maintenance, 02/23/20 10:58:00 EDT Start Date: 02/23/20 Status: OrderedAtivan 0.5 mg oral tablet 1 tablet = 0.5 mg, By Mouth, 3 times a day, PRN Anxiety, 0 Refills, Maintenance, 04/17/21 12:51:00 EDT, Tablet, Partial fill upon patient request if the prescription is for a schedule II opioid drug. Start Date: 04/17/21 Status: Orderedatorvastatin 40 mg oral tablet 1 tablet = 40 mg, By Mouth, Daily, # 30 tablet, 11 Refills, Maintenance, 06/20/21 17:08:00 EDT, [facility] # [facility], 162, cm, 05/06/21 9:38:00 EDT, Height, 72, kg, 05/06/21 9:38:00 EDT, Dry Weight Start Date: 06/20/21 Status: OrderedBedside Commode See Instructions, # 1 each, Refills 0, Tot. Refills 0, Maintenance, for weakness, gait inestability,04/17/21 13:41:00 EDT, Supply Start Date: 04/17/21 Status: Orderedcyanocobalamin 1000 mcg/ml injectable solution 1 mL = 1,000 mcg, Intramuscular, Every 6 weeks, to be administered at home, # 1 mL, 0 Refills, Maintenance, 04/14/20 14:20:00 EDT, Injection, [facility] # [facility], 162, cm, 04/13/20 11:56:00 EDT, Height, 70.7, kg, 02/23/20 9:57:00 EDT, Dry Weight Start Date: 04/14/20 Status: Ordereddocusate sodium 150 mg/15 ml oral liquid 10 mL = 100 mg, By Mouth, 2 times a day, PRN as needed for constipation, # 50 mL, 0 Refills, Maintenance, 04/17/21 12:19:00 EDT, Liquid, [facility], Partial fill upon patient request if the prescription is for a schedule II opioid drug.,... Start Date: 04/17/21 Status: OrderedLantus Inj = 6 units, Subcutaneous Injection, Daily at bedtime, 0 Refills, Maintenance, 01/07/19 13:56:35 EST, Injection Start Date: 01/07/19 Status: OrderedLantus Solostar Pen 100 units/mL subcutaneous solution See Instructions, Subcutaneous Injection, Use as directed for Diabetes mellitus type 1. (Max Dose = 15 units/day), # 3 each, 5 Refills, Maintenance, 04/10/21 20:10:00 EDT, Partial fill upon patient request if the prescription is for a schedule II opio... Start Date: 04/10/21 Stop Date: 05/10/21 Status: Orderedlevothyroxine 0.1 mg oral tablet 1 tablet = 100 mcg, By Mouth, Daily, # 30 tablet, 0 Refills, Maintenance, 04/10/21 20:09:00 EDT, Tablet, Partial fill upon patient request if the prescription is for a schedule II opioid drug. Start Date: 04/10/21 Status: Orderedlisinopril 20 mg oral tablet 20 mg, 1, tablet, By Mouth, Daily, # 30 tablet, Refills 0, Maintenance, 04/10/21 20:10:00 EDT, Partial fill upon patient request if the prescription is for a schedule II opioid drug. Start Date: 04/10/21 Status: Orderedmelatonin 3 mg oral tablet, disintegrating 2 tablet = 6 mg, By Mouth, Daily at bedtime, # 20 tablet, 0 Refills, Maintenance, 04/17/21 12:17:00 EDT, DIS Tablet, [facility], Partial fill upon patient request if the prescription is for a schedule II opioid drug., 162, cm, 03/13/21 1... Start Date: 04/17/21 Status: OrderedmetFORMIN 500 mg oral tablet 1 tablet = 500 mg, By Mouth, Daily, with meals, # 30 tablet, 0 Refills, Maintenance, 01/07/19 13:55:59 EST, Tablet Start Date: 01/07/19 Status: OrderedPARoxetine 20 mg oral tablet 20 mg, 1, tablet, By Mouth, Daily, # 30 tablet, Refills 0, Maintenance, 04/10/21 20:10:00 EDT, Partial fill upon patient request if the prescription is for a schedule II opioid drug. Start Date: 04/10/21 Status: Orderedprochlorperazine 5 mg oral tablet 1 or 2 tablets, By Mouth, Every 6 hours, PRN Nausea, # 30 tablet, 1 Refills, Maintenance, 10/04/19 16:19:46 EST Start Date: 10/04/19 Status: OrderedQUEtiapine 25 mg oral tablet 12.5 mg, 0.5, tablet, By Mouth, Every 8 hours, PRN, Refills 0, Maintenance, Agitation, 04/17/21 12:17:00 EDT, Partial fill upon patient request if the prescription is for a schedule II opioid drug. Start Date: 04/17/21 Status: OrderedRepaglinide By Mouth, 3 times a day before meals, Refills 0, Maintenance, 01/07/19 13:54:59 EST Start Date: 01/07/19 Status: OrderedShower Chair See Instructions, # 1 each, Refills 0, Tot. Refills 0, Maintenance, for weakness, gait inestability,04/17/21 13:39:00 EDT, Supply Start Date: 04/17/21 Status: OrderedTylenol 325 mg oral tablet 650 mg, 2, tablet, By Mouth, Every 6 hours, # 24 tablet, Refills 0, Tot. Refills 0, Maintenance, 04/17/21 12:19:00 EDT, Route to Pharmacy Electronically, [facility], Partial fill upon patient request if the prescription is for a schedule... Start Date: 04/17/21 Status: OrderedZofran ODT 4 mg oral tablet, disintegrating 1 tablet = 4 mg, By Mouth, Every 8 hours, PRN as needed for nausea/vomiting, # 30 tablet, 0 Refills,Maintenance, 10/05/19 20:46:34 EST, DIS Tablet Start Date: 10/05/19 Stop Date: 10/08/19 Status: Ordered Problem List Condition Effective Dates Status Health Status Informant Aortic stenosis, mild(Confirmed) Active Stroke(Confirmed) Active Complication of Active chemotherapy(Confirmed) Diabetes mellitus(Confirmed) Active Abdominal discomfort, Active epigastric(Confirmed) Hypertension(Confirmed) Active Lymphoma(Confirmed) Active Social History Social History Type Response Smoking Status Never smoker entered on: 05/01/15 Sex
--- OUTSIDE RECORDS SUMMARY | 2022-11-07 12:50 | XMS_ITS | Continuity of Care Document ---
:1940 Author Organization [facility] Address [address] [place] [id number]- Care Team Providers Name Role Phone Pradeep ARRIETA, Teri Yusuf Primary Care Physician Encounter [facility] Date(s): 05/17/20 - 06/16/20 [facility] [address] [place] [id number] [facility] Attending Physician: Zuri Mendoza Admitting Physician: AdmtrZuri Referring Physician: Admtr, Ar8 Allergies, Adverse Reactions, Alerts Substance Reaction Severity Status predniSONE1 Active 1increased blood sugar, mood changes Immunizations Given and Recorded Vaccine Date Status Refusal Reason pneumococcal 23-valent vaccine 03/16/14 Given pneumococcal 13-valent vaccine 01/19/14 Given Medications Adult Aspirin 81 mg oral tablet, chewable 1 tablet = 81 mg, Daily, 0 Refills, Maintenance, 02/23/20 10:58:00 EDT Start Date: 02/23/20 Status: Orderedatorvastatin 40 mg oral tablet 1 tablet = 40 mg, By Mouth, Daily, # 30 tablet, 11 Refills, Maintenance, 05/17/20 16:49:00 EDT, [facility] # [facility], 162, cm, 05/17/20 13:43:00 EDT, Height, 72.9, kg, 05/17/20 10:15:00 EDT, Dry Weight Start Date: 05/17/20 Status: Orderedcyanocobalamin 1000 mcg/ml injectable solution 1 mL = 1,000 mcg, Intramuscular, Every 6 weeks, to be administered at home, # 1 mL, 0 Refills, Maintenance, 04/14/20 14:20:00 EDT, Injection, [facility], 162, cm, 04/13/20 11:56:00 EDT, Height, 70.7, kg, 02/23/20 9:57:00 EDT, Dry Weight Start Date: 04/14/20 Status: OrderedLantus Inj = 6 units, Subcutaneous Injection, Daily at bedtime, 0 Refills, Maintenance, 01/07/19 13:56:35 EST, Injection Start Date: 01/07/19 Status: OrderedLevothyroxine = 100 mcg, Daily, 0 Refills, Maintenance Start Date: 11/08/13 Status: Orderedlisinopril 10 mg oral tablet 2 tablet = 20 mg, By Mouth, Daily, 0 Refills, Maintenance, 11/08/13 9:00:04 EST Start Date: 11/08/13 Status: Orderedlorazepam 0.5 mg oral tablet 1 tablet = 0.5 mg, By Mouth, 3 times a day, 0 Refills, Maintenance Start Date: 11/08/13 Status: OrderedmetFORMIN 500 mg oral tablet 1 tablet = 500 mg, By Mouth, Daily, with meals, # 30 tablet, 0 Refills, Maintenance, 01/07/19 13:55:59 EST, Tablet Start Date: 01/07/19 Status: Orderedparoxetine 20 mg oral tablet 1 tablet = 20 mg, By Mouth, Daily, 0 Refills, Maintenance Start Date: 11/08/13 Status: Orderedprochlorperazine 5 mg oral tablet 1 or 2 tablets, By Mouth, Every 6 hours, PRN Nausea, # 30 tablet, 1 Refills, Maintenance, 10/04/19 16:19:46 EST Start Date: 10/04/19 Status: OrderedRepaglinide By Mouth, 3 times a day before meals, Refills 0, Maintenance, 01/07/19 13:54:59 EST Start Date: 01/07/19 Status: OrderedZofran ODT 4 mg oral tablet, [...]
--- OUTSIDE RECORDS SUMMARY | 2022-11-07 12:50 | XMS_ITS | Continuity of Care Document ---
:1940 Author Organization [facility] Address [address] [place] [phone]- Care Team Providers Name Role Phone Pradeep ARRIETA, Teri Yusuf Primary Care Physician Encounter [facility] [place] Date(s): 02/13/20 - 02/13/[address] [address]- [facility] Discharge Disposition: A-D/C Home Attending Physician: Shoaib Lama MD Admitting Physician: Shoaib Lama MD Referring Physician: Not on Staff, Referring MD Allergies, Adverse Reactions, Alerts Substance Reaction Severity Status predniSONE1 Active 1increased blood sugar, mood changes Immunizations Given and Recorded Vaccine Date Status Refusal Reason pneumococcal 23-valent vaccine 03/16/14 Given pneumococcal 13-valent vaccine 01/19/14 Given Medications ibrutinib 140 mg oral capsule 3 capsule = 420 mg, By Mouth, Daily, do not crush or chew, # 270 capsule, 0 Refills, Maintenance, 01/31/20 13:56:00 EDT Start Date: 01/31/20 Stop Date: 04/30/20 Status: OrderedLantus Inj = 10 units, Subcutaneous Injection, Daily at bedtime, 0 Refills, Maintenance, 01/07/19 13:56:35 EST,Injection Start Date: 01/07/19 Status: OrderedLevothyroxine = 100 mcg, Daily, 0 Refills, Maintenance Start Date: 11/08/13 Status: Orderedlisinopril 10 mg oral tablet 1 tablet = 10 mg, By Mouth, Daily, 0 Refills, Maintenance Start Date: 11/08/13 Status: Orderedlorazepam 0.5 mg oral tablet 1 tablet = 0.5 mg, By Mouth, 3 times a day, 0 Refills, Maintenance Start Date: 11/08/13 Status: OrderedmetFORMIN 500 mg oral tablet 1 tablet = 500 mg, By Mouth, Daily, with meals, # 30 tablet, 0 Refills, Maintenance, 01/07/19 13:55:59 EST, Tablet Start Date: 01/07/19 Status: OrderedMisc Rx 8 units, Refills 0, Maintenance, 06/01/18 10:31:09 EDT, Compound Start Date: 06/01/18 Status: Orderedparoxetine 20 mg oral tablet 1 [...] 01/07/19 13:54:59 EST Start Date: 01/07/19 Status: Orderedsimvastatin 20 mg oral tablet 1 tablet = 20 mg, By Mouth, Daily at bedtime, 0 Refills, Maintenance Start Date: 11/08/13 Status: OrderedZofran ODT 4 mg oral tablet, disintegrating 1 tablet = 4 mg, By Mouth, Every 8 hours, PRN as needed for nausea/vomiting, # 30 tablet, 0 Refills,Maintenance, 10/05/19 20:46:34 EST, DIS Tablet Start Date: 10/05/19 Stop Date: 10/08/19 Status: Ordered Problem List Condition Effective Dates Status Health Status Informant Complication of Active chemotherapy(Confirmed) Abdominal discomfort, Active epigastric(Confirmed) Lymphoma(Confirmed) Active Results Orders for Microbiology Reports Name Date Urine Culture (URINE CULTURE) 02/13/20 Microbiology Reports TEST:Urine Culture STATUS:Unauthenticated BODY SITE: SOURCE:URINE COLLECTED DATE/TIME:02/13/20 3:50 PMUrine Culture SPECIMEN DESCRIPTION : URINE STRAIGHT CATH. SPECIAL REQUESTS : NONE Reflexed from [id number] REPORT STATUS : PRELIMINARY REPORT Radiology Reports Exam Date Time Procedure Performing Provider Status 02/13/20 3:10 PM Chest Portable Hector Ramirez; Jc (Verified ) Notes:(Chest Portable) Reason For Exam: Shortness of BreathRESULT: Chest Portable Chest Portable Reason: Shortness of Breath; pt states she feels confused. COMPARISON: 01/29/14. FINDINGS: LINES AND TUBES: None. LUNGS AND PLEURA: Clear lungs. Normal pulmonary vascularity. No pleural effusion. No pneumothorax. HEART, MEDIASTINUM AND NATASHA: Heart is normal in size. Normal mediastinal and hilar contour. BONES AND SOFT TISSUES: No acute abnormality. IMPRESSION: No acute abnormality. WSN: [id number] Ordering Physician: Shoaib Lama Dictated By: Candace England MD, V Dictated Date/Time: 02/13/20 3:32 pm Reviewed By: Candace England MD, V Signed By: Candace England MD, V Signed Date/Time: 02/13/20 3:32 pm Transcribed By: KELSEY Transcribed Date/Time: 02/13/20 3:31 pm Vital Signs Most recent to oldest 1 2 3 [Reference Range]: Oxygen Saturation [94-100 %] 99 % 95 % 100 % (02/13/20 6:12 PM) (02/13/20 2:26 PM) (02/13/20 1:5 5 PM) Pulse Rate [55-90 bpm] 69 bpm 73 bpm 73 bpm (02/13/20 6:12 PM) (02/13/20 2:26 PM) (02/13/20 1:5 5 PM) Blood Pressure [90-138/55-84 mm 168/80 mm Hg 132/56 mm Hg 145/57 mm Hg Hg] *H* (02/13/20 2:26 PM) *H* (02/13/20 6:12 PM) (02/13/20 1:55 PM) Respiratory Rate [16-30 br/min] 18 br/min 24 br/min 18 br/min (02/13/20 6:12 PM) (02/13/20 2:26 PM) (02/13/20 1:5 5 PM) Temperature [96.8-100.4 DegF] 97.7 DegF 98.5 DegF 98 .2 DegF (02/13/20 6:12 PM) (02/13/20 2:26 PM) (02/13/20 1:5 5 PM) Liters per Minute 0 L/min (02/13/20:26 PM) Mode of Delivery (Oxygen) Room air Room air Room a ir (02/13/20 6:12 PM) (02/13/20 2:26 PM) (02/13/20 1:5 5 PM) Blood pressure sites Arm, left Arm, left Arm, left (02/13/20 6:12 PM) (02/13/20 2:26 PM) (02/13/20 1:5 5 PM) Temperature Route Oral Oral Oral (02/13/20 6:12 PM) (02/13/20 2:26 PM) (02/13/20 1:5 5 PM) Social History Social History Type Response Smoking Status Never smoker entered on: 05/01/15 Sex
--- OUTSIDE RECORDS SUMMARY | 2022-11-07 12:50 | XMS_ITS | Continuity of Care Document ---
:1940 Author Organization [facility] Address [address] [place] [id number]- Care Team Providers Name Role Phone Pradeep ARRIETA, Teri Yusuf Primary Care Physician Encounter [facility] [place] Date(s): 12/25/20 - 01/24/21 [facility] [address] [address] Allergies, Adverse Reactions, Alerts Substance Reaction Severity [...] tablet, 11 Refills, Maintenance, 05/17/20 16:49:00 EDT, [facility] # [facility], 162, cm, 05/17/20 13:43:00 EDT, Height, 72.9, kg, 05/17/20 10:15:00 EDT, Dry Weight Start Date: 05/17/20 Status: Orderedcyanocobalamin 1000 mcg/ml injectable solution 1 mL = 1,000 mcg, Intramuscular, Every 6 weeks, to be administered at home, # 1 mL, 0 Refills, Maintenance, 04/14/20 14:20:00 EDT, Injection, [facility], 162, cm, 04/13/20 [...]
--- OUTSIDE RECORDS SUMMARY | 2022-11-07 12:50 | XMS_ITS | Continuity of Care Document ---
:1940 Author Organization [facility] Address [address] [place] [address]- Care Team Providers Name Role Phone Pradeep ARRIETA, Teri Yusuf Primary Care Physician Encounter [facility] [place] Date(s): 04/26/20 - 06/02/20 [facility] [address] [place] [address]- [facility] Attending Physician: Eagle You MD Admitting Physician: Eagle You MD Referring Physician: Teri Fernández NP Allergies, Adverse Reactions, Alerts Substance Reaction Severity [...] tablet, 11 Refills, Maintenance, 05/17/20 16:49:00 EDT, [facility] # [facility], 162, cm, 05/17/20 13:43:00 EDT, Height, 72.9, kg, 05/17/20 10:15:00 EDT, Dry Weight Start Date: 05/17/20 Status: Orderedcyanocobalamin 1000 mcg/ml injectable solution 1 mL = 1,000 mcg, Intramuscular, Every 6 weeks, to be administered at home, # 1 mL, 0 Refills, Maintenance, 04/14/20 14:20:00 EDT, Injection, [facility] # [facility], 162, cm, 04/13/20 11:56:00 [...]
--- OUTSIDE RECORDS SUMMARY | 2022-11-07 12:50 | XMS_ITS | Continuity of Care Document ---
:1939 Author Organization [facility] Address Unavailable , Care Team Providers Name Role Phone Pradeep ARRIETA, Teri Yusuf Primary Care Physician Encounter [facility] [place] Date(s): 07/03/21 - 08/02/21 [facility] Allergies, Adverse Reactions, Alerts Substance Reaction Severity [...] 0 Refills, Maintenance, 04/17/21 12:19:00 EDT, Liquid, [facility] 3, Partial fill upon patient request if [...] Refills, Maintenance, 04/17/21 12:17:00 EDT, DIS Tablet, [facility], Partial fill upon patient request [...] 04/17/21 12:19:00 EDT, Route to Pharmacy Electronically, [facility], Partial fill upon patient request [...]
--- OUTSIDE RECORDS SUMMARY | 2022-11-07 12:50 | XMS_ITS | Continuity of Care Document ---
:[address] [facility] Address [address] [place] [address]- Care Team Providers Name Role Phone Pradeep ARRIETA, Teri Yusuf Primary Care Physician Encounter [facility] [place] Date(s): 04/03/22 - 05/03/[address] [address] Attending Physician: Zuri Mendoza Admitting Physician: Zuri Mendoza Referring Physician: AdmtrZuri Allergies, Adverse Reactions, Alerts Substance Reaction Severity [...] 0 Refills, Maintenance, 04/14/20 14:20:00 EDT, Injection, [facility] # [facility], 162, cm, 04/13/20 11:56:00 EDT, Height, 70.7, kg, 02/23/20 9:57:00 EDT, Dry Weight Start Date: 04/14/20 Status: Ordereddocusate sodium 150 mg/15 ml oral liquid 10 mL = 100 mg, By Mouth, 2 times a day, PRN as needed for constipation, # 50 mL, 0 Refills, Maintenance, 04/17/21 12:19:00 EDT, Liquid, [facility], Partial fill upon patient request [...] Refills, Maintenance, 04/17/21 12:17:00 EDT, DIS Tablet, [facility], Partial fill upon patient request [...] 04/17/21 12:19:00 EDT, Route to Pharmacy Electronically, [facility], Partial fill upon patient request [...]
--- OUTSIDE RECORDS SUMMARY | 2022-11-07 12:50 | XMS_ITS | Continuity of Care Document ---
:1939 Author Organization [facility] Address [address] [place] [address]- Care Team Providers Name Role Phone Pradeep ARRIETA, Teri Yusuf Primary Care Physician [place] [facility] [place]20 - 06/21/20 [facility] [address] [address]- [facility] Allergies, Adverse Reactions, Alerts Substance Reaction Severity [...] tablet, 11 Refills, Maintenance, 05/17/20 16:49:00 EDT, [facility] # [facility], 162, cm, 05/17/20 13:43:00 EDT, Height, 72.9, kg, 05/17/20 10:15:00 EDT, Dry Weight Start Date: 05/17/20 Status: Orderedcyanocobalamin 1000 mcg/ml injectable solution 1 mL = 1,000 mcg, Intramuscular, Every 6 weeks, to be administered at home, # 1 mL, 0 Refills, Maintenance, 04/14/20 14:20:00 EDT, Injection, [facility] # 50, 162, cm, 04/13/20 [...]
--- OUTSIDE RECORDS SUMMARY | 2022-11-07 12:50 | XMS_ITS | Continuity of Care Document ---
:1939 Author Organization [facility] Address [address] [place] [address]- Care Team Providers Name Role Phone Pradeep ARRIETA, Teri Yusuf Primary Care Physician Encounter [facility] [place] [place] Date(s): 02/18/20 - 03/01/21 [facility] [address] [address] Discharge Disposition: A-D/C Home Attending Physician: Aubree Castro MD Admitting Physician: Mikie Garsia MD Referring Physician: Teri Fernández NP Allergies, [...] tablet, 11 Refills, Maintenance, 05/17/20 16:49:00 EDT, [facility] # [facility], 162, cm, 05/17/20 13:43:00 [...] discomfort, Active epigastric(Confirmed) Hypertension(Confirmed) Active Lymphoma(Confirmed) Active Vital Signs Most recent to oldest 1 2 3 [Reference Range]: Height 162 cm 162 cm 162 cm (01/25/21 11:35 AM) (12/13/20 2:17 PM) (09/20/20 10 :23 AM) Weight 71.0 kg 70.4 kg 72.9 kg (08/21/20 9:59 AM) (06/29/20 12:57 PM) (05/17/20 10: 15 AM) Oxygen Saturation [94-100 %] 98 % (02/23/20 9:57 AM) Pulse Rate [55-90 bpm] 79 bpm 91 bpm 78 bpm (08/21/20 9:59 AM) *H* (05/17/20 10:15 AM) (06/29/20 12:57 PM) Body Mass Index [18.5-24.99] 27.05 26.83 27. 78 *H* *H* *H* (08/21/20 9:59 AM) (06/29/20 12:57 PM) (05/17/20 10: 15 AM) Blood Pressure [90-138/55-84 140/62 mm Hg 110/78 mm Hg 156 /54 mm Hg mm Hg] *H* (06/29/20 12:57 PM) *H* (08/21/20 9:59 AM) (05/17/20 10:15 AM) Temperature [96.8-100.4 97.8 DegF 98.0 DegF 98.3 Deg F DegF] (08/21/20 9:59 AM) (06/29/20 12:57 PM) (02/23/20 9:5 7 AM) Mode of Delivery (Oxygen) Room air (02/23/20 9:57 AM) Blood pressure sites Arm, left Arm, right Arm, right (08/21/20 9:59 AM) (06/29/20 12:57 PM) (05/17/20 10: 15 AM) Temperature Route Temporal Temporal Temporal (01/25/21 11:35 AM) (12/13/20 2:17 PM) (09/20/20 10 :23 AM) Dry Weight 71.0 kg 70.411 kg 72.9 kg (08/21/20 9:59 AM) (06/29/20 12:57 PM) (05/17/20 10: 15 AM) Weight Obtained Via Standing scale Standing scale Standing sca le (08/21/20 9:59 AM) (06/29/20 12:57 PM) (05/17/20 10: 15 AM) Dry Weight Obtained Via Standing scale Standing scale Standing scale (08/21/20 9:59 AM) (06/29/20 12:57 PM) (05/17/20 10: 15 AM) Social History Social History Type Response Smoking Status Never smoker entered on: 05/01/15 Sex
--- OUTSIDE RECORDS SUMMARY | 2022-11-07 12:50 | XMS_ITS | Continuity of Care Document ---
:1939 Author Organization [facility] Address [address] [place] [address], [address]rd Floor, [address] [place] [address]- Care Team Providers Name Role Phone Pradeep ARRIETA, Teri Yusuf Primary Care Physician Encounter [facility] [place] Date(s): 03/13/20 - 04/12/20 [facility] [address] [facility], 3rd Floor, [address] [place] [address]- [facility] Attending Physician: Zuri Mendoza Admitting Physician: Zuri [...] 02/23/20 10:58:00 EDT Start Date: 02/23/20 Status: Orderedibrutinib 140 mg oral capsule 3 capsule = 420 mg, By Mouth, Daily, do not crush or chew, # 270 capsule, 0 Refills, Maintenance, 04/30/20 13:56:00 EDT Start Date: 04/30/20 Stop Date: 07/29/20 Status: Orderedibrutinib 140 mg oral capsule 3 capsule = 420 mg, By Mouth, Daily, for 90 days, do not crush or chew, # 270 capsule, 0 Refills, Hard Stop 04/30/20 13:56:00 EDT, 01/31/20 13:56:00 EDT Start Date: 01/31/20 Stop [...] chemotherapy(Confirmed) Abdominal discomfort, Active epigastric(Confirmed) Lymphoma(Confirmed) Active Social History Social History Type Response Smoking Status Never smoker entered on: 05/01/15 Sex
--- OUTSIDE RECORDS SUMMARY | 2022-11-07 12:50 | XMS_ITS | Continuity of Care Document ---
:1939 Author Organization [facility] Address [address] [place] [address]- Care Team Providers Name Role Phone Teri Fernández NP Primary Care Physician [place] [facility] [place] Date(s): 05/28/18 - 02/18/20 [facility] [address] [address]- [facility] Discharge Disposition: A-D/C Home Attending Physician: Josse Dumont MD Admitting Physician: Josse Dumont MD Referring Physician: Teri Fernández NP Allergies, [...] Results Orders for Microbiology Reports Name Date Blood Culture 10/05/19 Blood Culture #2 10/05/19 Microbiology Reports TEST:Blood Culture STATUS:Auth (Verified) BODY SITE: SOURCE:Blood COLLECTED DATE/TIME:10/05/19 12:02 PMBlood Culture SPECIMEN DESCRIPTION : BLOOD R ARM SPECIAL REQUESTS : NONE CULTURE : NO GROWTH 5 DAYS. REPORT STATUS : FINAL 10/10/2019TEST:Blood Culture, Second Order STATUS:Auth (Verified) BODY SITE: SOURCE:Blood COLLECTED DATE/TIME:10/05/19 12:02 PMBlood Culture, Second Order SPECIMEN DESCRIPTION : BLOOD L ARM SPECIAL REQUESTS : NONE CULTURE : NO GROWTH 5 DAYS. REPORT STATUS : FINAL 10/10/2019 Vital Signs Most recent to oldest 1 2 3 [Reference Range]: Height 162 cm 162 cm 162 cm (01/12/20 10:44 AM) (12/01/19 11:18 AM) (12/01/19 1 0:13 AM) Weight 72.3 kg 76.5 kg 76.4 kg (12/01/19 10:13 AM) (08/20/19 2:51 PM) (02/09/19 1: 16 PM) Oxygen Saturation [94-100 99 % %] (10/05/19 12:04 PM) Pulse Rate [55-90 bpm] 71 bpm 67 bpm 62 bpm (12/01/19 10:13 AM) (08/20/19 2:51 PM) (02/09/19 1: 16 PM) Body Mass Index 27.55 29.15 29.11 [18.5-24.99] *H* *H* *H* (12/01/19 10:13 AM) (08/20/19 2:51 PM) (02/09/19 1: 16 PM) Blood Pressure 173/65 mm Hg 161/61 mm Hg 163/65 mm Hg [90-138/55-84 mm Hg] *H* *H* *H* (12/01/19 10:13 AM) (08/20/19 2:51 PM) (02/09/19 1: 16 PM) Temperature [96.8-100.4 97.6 DegF 98.4 DegF 97.9 Deg F DegF] (12/01/19 10:13 AM) (10/05/19 12:04 PM) (08/20/19 2:51 PM) Mode of Delivery (Oxygen) Room air (10/05/19 12:04 PM) Blood pressure sites Arm, left Arm, left Arm, left (12/01/19 10:13 AM) (08/20/19 2:51 PM) (02/09/19 1: 16 PM) Temperature Route Oral Oral Oral (01/12/20 10:44 AM) (12/01/19 11:18 AM) (12/01/19 1 0:13 AM) Dry Weight 72.3 kg 76.5 kg 76.4 kg (12/01/19 10:13 AM) (08/20/19 2:51 PM) (02/09/19 1: 16 PM) Weight Obtained Via Standing scale Standing scale Standing sca le (12/01/19 10:13 AM) (08/20/19 2:51 PM) (02/09/19 1: 16 PM) Dry Weight Obtained Via Standing scale Standing scale Standing scale (12/01/19 10:13 AM) (08/20/19 2:51 PM) (02/09/19 1: 16 PM) Social History Social History Type Response Smoking Status Never smoker entered on: 05/01/15 Sex
--- OUTSIDE RECORDS SUMMARY | 2022-11-07 12:50 | XMS_ITS | Continuity of Care Document ---
:1939 Author Organization [facility] Address [address] [place] [address]- Care Team Providers Name Role Phone Pradeep ARRIEAT, Teri Yusuf Primary Care Physician [place] [facility] [place] - 08/28/[address] [address] Attending Physician: Zuri Mendoza Admitting [...] 0 Refills, Maintenance, 04/14/20 14:20:00 EDT, Injection, [facility] # [facility], 162, cm, 04/13/20 11:56:00 EDT, Height, 70.7, kg, 02/23/20 9:57:00 EDT, Dry Weight Start Date: 04/14/20 Status: Ordereddocusate sodium 150 mg/15 ml oral liquid 10 mL = 100 mg, By Mouth, 2 times a day, PRN as needed for constipation, # 50 mL, 0 Refills, Maintenance, 04/17/21 12:19:00 EDT, Liquid, [facility], Partial fill upon patient [...] Refills, Maintenance, 04/17/21 12:17:00 EDT, DIS Tablet, [facility], Partial fill upon [...] 04/17/21 12:19:00 EDT, Route to Pharmacy Electronically, [facility], Partial fill upon patient request if the prescription is for a schedule... Start Date: 04/17/21 Status: OrderedZofran ODT 4 mg oral tablet, disintegrating 1 tablet = 4 mg, By Mouth, Every 8 hours, PRN as needed for nausea/vomiting, # 30 tablet, 0 Refills,Maintenance, 10/05/19 20:46:34 EST, DIS Tablet Start Date: 10/05/19 Stop Date: 10/08/19 Status: Ordered Problem List Condition Confirmation Course Effective Dates Status Health Stat us Informant Aortic stenosis, Confirmed Active mild Stroke Confirmed Active Complication of Confirmed Active chemotherapy Diabetes mellitus Confirmed Active Abdominal Confirmed Active discomfort, epigastric Hypertension Confirmed Active Lymphoma Confirmed Active Social History Social History Type Response Smoking Status Never smoker entered on: 05/01/15 Sex Patient Care team information PersonnelName: Pradeep ARRIETA, Teri Yusuf Address: Address: [address] [place] [address] [facility] [place] [id number] [place] [address]
--- OUTSIDE RECORDS SUMMARY | 2022-11-07 12:50 | XMS_ITS | Continuity of Care Document ---
:1939 Author Organization [facility] Address [address] [place] [address] Drive [address] [place] [address]- Care Team Providers Name Role Phone Pradeep ARRIETA, Teri Yusuf Primary Care Physician En[place] [facility] [place] Date(s): 04/26/21 - 05/26/[address] [place] [id number] Allergies, Adverse Reactions, Alerts Substance Reaction Severity [...] EDT, Dry Weight Start Date: 05/17/20 Status: OrderedBedside Commode See Instructions, # 1 [...] 0 Refills, Maintenance, 04/17/21 12:19:00 EDT, Liquid, [facility] 3, Partial fill upon patient [...] Refills, Maintenance, 04/17/21 12:17:00 EDT, DIS Tablet, [facility], Partial fill upon patient [...] 04/17/21 12:19:00 EDT, Route to Pharmacy Electronically, [facility], Partial fill upon patient [...]
--- OUTSIDE RECORDS SUMMARY | 2022-11-07 12:50 | XMS_ITS | Continuity of Care Document ---
:1939 Author Organization [facility] Address [address] [place] [address] Drive [address] [place] [address]- Care Team Providers Name Role Phone Pradeep ARRIETA, Teri Yusuf Primary Care Physician Encounter [facility] [place] [facility] [id number] Date(s): 05/01/21 - 05/08/[address] [place] [id number] Attending Physician: Deepika QUINTERO MD, Be Stewart Allergies, Adverse Reactions, Alerts Substance Reaction Severity [...] 0 Refills, Maintenance, 04/17/21 12:19:00 EDT, Liquid, [facility] 3, Partial fill upon patient request if [...] Refills, Maintenance, 04/17/21 12:17:00 EDT, DIS Tablet, [facility], Partial fill upon patient request if [...] 04/17/21 12:19:00 EDT, Route to Pharmacy Electronically, [facility], Partial fill upon patient [...] Active Vital Signs Most recent to oldest [Reference Range]: 1 Height 162 cm (05/01/21 10:45 AM) Weight 71.2 kg (05/01/21 10:45 AM) Pulse Rate [55-90 bpm] 80 bpm (05/01/21 10:45 AM) Body Mass Index [18.5-24.99] 27.13 *H* (05/01/21 10:45 AM) Blood Pressure [90-138/55-84 mm Hg] 143/53 mm Hg *H* (05/01/21 10:45 AM) Temperature [96.8-100.4 DegF] 98.0 DegF (05/01/21 10:45 AM) Blood pressure sites Arm, right (05/01/21 10:45 AM) Temperature Route Temporal (05/01/21 10:45 AM) Weight Obtained Via Standing scale (05/01/21 10:45 AM) Social History Social History Type Response Smoking Status Never smoker entered on: 05/01/15 Sex
--- OUTSIDE RECORDS SUMMARY | 2022-11-07 12:51 | XMS_ITS | Continuity of Care Document ---
:1939 Author Organization [facility] Address [address] [place] [address] Drive [address] [place] [address]- Care Team Providers Name Role Phone Pradeep ARRIETA, Teri Yusuf Primary Care Physician [place] [facility] [place] 04/18/21 - 05/18/[address] [place] [id number] Allergies, Adverse Reactions, Alerts Substance [...] 0 Refills, Maintenance, 04/17/21 12:19:00 EDT, Liquid, [facility], Partial fill upon patient request if [...] Refills, Maintenance, 04/17/21 12:17:00 EDT, DIS Tablet, [facility], Partial fill upon [...] 04/17/21 12:19:00 EDT, Route to Pharmacy Electronically, [facility], Partial fill upon [...]
--- OUTSIDE RECORDS SUMMARY | 2022-11-07 12:51 | XMS_ITS | Continuity of Care Document ---
:1939 Author Organization [facility] Address [address] [place] [address]- Care Team Providers Name Role Phone Pradeep ARRIETA, Teri Yusuf Primary Care Physician Encounter 04/18/21 - 06/08/21 [facility] [address] [place] [id number] Dis[facility]: [facility] Allergies, Adverse Reactions, Alerts Substance Reaction Severity [...] 0 Refills, Maintenance, 04/17/21 12:19:00 EDT, Liquid, [facility] 3, Partial fill upon patient request if [...] Refills, Maintenance, 04/17/21 12:17:00 EDT, DIS Tablet, [facility], Partial fill upon patient [...] 04/17/21 12:19:00 EDT, Route to Pharmacy Electronically, [facility], Partial fill upon patient [...]
--- OUTSIDE RECORDS SUMMARY | 2022-11-07 12:51 | XMS_ITS | Continuity of Care Document ---
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 Gallstone ileus (Final) - 04/11/21 Discharge Disposition: A-Transfer VNA/Home Health Attending Physician: Joi Chandra MD Admitting Physician: Joi Chandra MD Referring Physician: Not on Staff, Referring [...] tablet, 11 Refills, Maintenance, 05/17/20 16:49:00 EDT, [facility] # 50 162, cm, 05/17/20 13:43:00 EDT, Height, 72.9, [...] 0 Refills, Maintenance, 04/17/21 12:19:00 EDT, Liquid, [facility], Partial fill upon patient request [...] Orderedlisinopril 20 mg oral tablet 20 mg, Tablet, By Mouth, 04/17/21 9:00:00 EDT Start Date: 04/17/21 Stop Date: 04/17/21 Status: Completedlisinopril 20 mg oral tablet 20 mg, 1, [...] Refills, Maintenance, 04/17/21 12:17:00 EDT, DIS Tablet, [facility], Partial fill upon patient request [...] OrderedTylenol 325 mg oral tablet 650 mg, Tablet, By Mouth, 04/17/21 9:00:00 EDT Start Date: 04/17/21 Stop Date: 04/17/21 Status: CompletedTylenol 325 mg oral tablet 650 mg, 2, tablet, By Mouth, Every 6 hours, # 24 tablet, Refills 0, Tot. Refills 0, Maintenance, 04/17/21 12:19:00 EDT, Route to Pharmacy Electronically, [facility], Partial fill upon patient request [...] discomfort, Active epigastric(Confirmed) Hypertension(Confirmed) Active Lymphoma(Confirmed) Active Procedures Procedure Date Related Diagnosis Body Site Status Enterotomy ( < 50% circumference) and Completed removal of gallstone (3.5x3cm); Primary closure of enterotomy- transverse closure; longitudinal enterotomy Exploratory laparotomy, exploratory Completed celiotomy with or without biopsy(s) (separate procedure) Transversus abdominis plane (TAP) block Completed (abdominal plane block, rectus sheath block) bilateral; by injections (includes imaging guidance, when performed) Results Radiology Reports Exam Date Time Procedure Performing Provider Status 04/15/21 8:44 AM Abdomen AP FelisauEmmy; Auth (Verifie d) Notes:(Abdomen AP) Reason For Exam: DistentionRESULT: XR Abdomen AP Supine view of the abdomen and pelvis dated April 15, 2021. No prior studies are available. HISTORY: Distention. FINDINGS: This examination shows a couple of dilated loops of small bowel in the left mid abdomen. There are calcifications noted in the right upper quadrant. By history, the patient is status post cholecystectomy and a previous CT showed gallstones or calcifications in the gallbladder fossa as well as within the second portion of the duodenum. These calcific effusions are consistent with the appearance of the CT. Pneumobilia is demonstrated. Degenerative changes are noted in the spine and hips. IMPRESSION: Mildly dilated loops of small bowel which may represent an ileus, really or partial small bowel obstruction. Examination 09678. Thank you for allowing me to participate in the care of this patient. WSN: [id number] Ordering Physician: Brayden Hernandez Dictated By: Demian Mcintosh MD Dictated Date/Time: 04/15/21 10:56 a Reviewed By: Demian Mcintosh MD Signed By: Demian Mcintosh MD Signed Date/Time: 04/15/21 10:56 am Transcribed By: KELSEY Transcribed Date/Time: 04/15/21 10:46 am Exam Date Time Procedure Performing Provider Status 04/14/21 6:01 PM Chest Portable Scot Rivas; Jc (Verified) Notes:(Chest Portable) Reason For Exam: Shortness of BreathRESULT: Chest Portable Chest Portable Reason: Shortness of Breath; Clinical Question(s): Pleural Effusion COMPARISON: 04/10/2021 FINDINGS: LINES AND TUBES: None. LUNGS AND PLEURA: Linear density right lung likely atelectasis. No consolidation appreciated. Left lung appears clear. No pleural effusion. No pneumothorax. HEART, MEDIASTINUM AND NATASHA: Heart is normal in size. Normal upper mediastinal and hilar contour. BONES AND SOFT TISSUES: No acute abnormality. IMPRESSION: Probable right lung atelectasis. No significant pleural effusion appreciated. WSN: [id number] Ordering Physician: Linda Church Dictated By: Alek Orozco MD Dictated Date/Time: 04/14/21 6:06 pm Reviewed By: Alek Orozco MD Signed By: Alek Orozco MD Signed Date/Time: 04/14/21 6:06 pm Transcribed By: KELSEY Transcribed Date/Time: 04/14/21 6:05 pm Exam Date Time Procedure Performing Provider Status 04/10/21 6:56 PM Chest Portable Kiya Grimes (Verified ) Notes:(Chest Portable) Reason For Exam: after NG tube placement;Tube Placement RESULT: Chest Portable AP upright portable chest dated April 10, 2021 at 1830 hours. Comparison films are from February 13, 2020. HISTORY: Tube placement. FINDINGS: The cardiac silhouette is within normal limits for size. Mural calcifications are present in the aorta. A nasogastric tube is present. It extends off the film into the left upper quadrant. The tip and sidehole are distal to the EG junction region. Some minimal opacity is noted the left lung base likely atelectasis. Degenerative changes are noted in the spine and shoulders. IMPRESSION: Nasogastric tube extending off the film into the left upper quadrant. Minimal left basilar atelectasis. Examination 30451. Thank you for allowing me to participate in the care of this patient. WSN: [id number] Ordering Physician: Brayden Hernandez Dictated By: Demian Mcintosh MD Dictated Date/Time: 04/10/21 6:58 pm Reviewed By: Demian Mcintosh MD Signed By: Demian Mcintosh MD Signed Date/Time: 04/10/21 6:58 pm Transcribed By: KELSEY Transcribed Date/Time: 04/10/21 6:57 pm Vital Signs Most recent to oldest 1 2 3 [Reference Range]: Oxygen Saturation [94-100 %] 100 % 100 % 98 % (04/17/21 11:00 AM) (04/17/21 7:00 AM) (04/17/21 4:00 AM) Pulse Rate [55-90 bpm] 68 bpm 71 bpm 87 bpm (04/17/21 11:00 AM) (04/17/21 7:00 AM) (04/17/21 4:00 AM) Blood Pressure [90-138/55-84 144/49 mm Hg 181/73 mm Hg 181 /73 mm Hg mm Hg] *H* *H* *H* (04/17/21 11:00 AM) (04/17/21 8:46 AM) (04/17/21 7:00 AM) Respiratory Rate [16-30 18 br/min 16 br/min 18 br/mi n br/min] (04/17/21 11:00 AM) (04/17/21 9:46 AM) (04/17/21 4:00 AM) Temperature [96.8-100.4 DegF] 97.5 DegF 97.3 DegF 98 .4 DegF (04/17/21 11:00 AM) (04/17/21 7:00 AM) (04/17/21 4:00 AM) Liters per Minute 1 L/min 1 L/min 1 L/min (04/16/21 3:00 AM) (04/15/21 11:00 PM) (04/15/21 7: 00 PM) Mode of Delivery (Oxygen) Room air Room air Room a ir (04/17/21 11:00 AM) (04/17/21 7:00 AM) (04/17/21 4:00 AM) Blood pressure sites Arm, left Arm, left Arm, right (04/17/21 11:00 AM) (04/17/21 7:00 AM) (04/17/21 4:00 AM) Temperature Route Oral Oral Oral (04/17/21 11:00 AM) (04/17/21 7:00 AM) (04/17/21 4:00 AM) Social History Social History Type Response Smoking Status Never smoker entered on: 05/01/15 Sex
--- OUTSIDE RECORDS SUMMARY | 2022-11-07 12:51 | XMS_ITS | Continuity of Care Document ---
:1940 Author Organization [facility] Address [address] [place] [id number]- Care Team Providers Name Role Phone Pradeep ARRIETA, Teri Yusuf Primary Care Physician Encounter [facility] Date(s): 05/18/20 - 06/17/20 [facility] [address] [place] [id number]- [facility] Allergies, Adverse Reactions, Alerts Substance Reaction [...] tablet, 11 Refills, Maintenance, 05/17/20 16:49:00 EDT, [facility] # [facility], 162, cm, 05/17/20 13:43:00 EDT, Height, 72.9, kg, 05/17/20 10:15:00 EDT, Dry Weight Start Date: 05/17/20 Status: Orderedcyanocobalamin 1000 mcg/ml injectable solution 1 mL = 1,000 mcg, Intramuscular, Every 6 weeks, to be administered at home, # 1 mL, 0 Refills, Maintenance, 04/14/20 14:20:00 EDT, Injection, [facility], 162, cm, 04/13/20 [...]
--- OUTSIDE RECORDS SUMMARY | 2022-11-07 12:51 | XMS_ITS | Continuity of Care Document ---
:1940 Author Organization [facility] Address [address] [place] [id number]- Care Team Providers Name Role Phone Pradeep ARRIETA, Teri Yusuf Primary Care Physician Encounter [facility] Date(s): 06/01/20 - 06/02/[address] [id number]- [facility] Discharge Disposition: A-D/C Home Attending Physician: Johanna Mckay DO Admitting Physician: Johanna Mckay DO Referring Physician: Not on Staff, Referring MD [...] EDT, Injection, [facility] # 50, 013, cm, 04/13/20 11:56:00 EDT, Height, 70.7, kg, [...] 3 [Reference Range]: Oxygen Saturation [94-100 %] 96 % 98 % 98 % (06/02/20 12:52 AM) (06/01/20 9:15 PM) (06/01/20 6: 21 PM) Pulse Rate [55-90 bpm] 64 bpm 73 bpm 81 bpm (06/02/20 12:52 AM) (06/01/20 9:15 PM) (06/01/20 6: 21 PM) Blood Pressure [90-138/55-84 152/77 mm Hg 158/75 mm Hg 137 /69 mm Hg mm Hg] *H* *H* (06/01/20 6:21 PM ) (06/02/20 12:52 AM) (06/01/20 9:15 PM) Respiratory Rate [16-30 20 br/min 14 br/min 18 br/mi n br/min] (06/02/20 12:52 AM) *L* (06/01/20 6:21 PM) (06/01/20 9:15 PM) Temperature [96.8-100.4 DegF] 98.3 DegF (06/01/20 6:21 PM) Mode of Delivery (Oxygen) Room air Room air Room a ir (06/02/20 12:52 AM) (06/01/20 9:15 PM) (06/01/20 6: 21 PM) Blood pressure sites Arm, left Arm, right Arm, right (06/02/20 12:52 AM) (06/01/20 9:15 PM) (06/01/20 6: 21 PM) Temperature Route Oral (06/01/20 6:21 PM) Social History Social History Type Response Smoking Status Never smoker entered on: 05/01/15 Sex
[2022-11-07 12:55] LABS: Glucose, Whole Blood 131 mg/dL (60-115)
[2022-11-07 13:23] LABS: Blood Urea Nitrogen 36 mg/dL (9-16); Calcium 9.5 mg/dL (8.4-10.2); Chloride 111 mmol/L (96-108); Glucose Random 142 mg/dL (60-115); Potassium 5.3 mmol/L (3.3-5.1); Sodium 141 mmol/L (135-145)
[2022-11-07 13:36] LABS: Anion Gap 14 (12-20); Carbon Dioxide 21 mmol/L (22-29); Creatinine Clr Calc Pharmacy 26.7; Estimated Glomerular Filt Rate 33
--- NOTE | 2022-11-07 13:57 | MHC.EDTECH ---
pt cleaned and bedding changed. purewick removed at patient request, personal brief placed on the patient.
[2022-11-07 13:58] VITALS: BP 142/65; PULSE 79; RESP 98; O2SAT 98
--- NOTE | 2022-11-07 14:29 | PC.NURSE ---
Pt assisted onto hospital bed for comfort. New IV inserted 22g to right hand, old IV infiltrated and removed. Denies pain. awaits bed assgn
--- NOTE | 2022-11-07 14:43 | HO.PM.IMPN ---
Subjective Subjective Date of Service: 11/07/22 Interval History: The patient was seen and evaluated this morning Laying in bed, feels anxious Potassium still elevated Denies any fever, chills or shortness of breath No reported other overnight events. Systemic review: No fever, chills or weakness No chest pain, palpitation No shortness of breath or coughing No abdominal pain, nausea or vomiting No urinary symptoms No reported rash Physical Exam Vital Signs: Vital Signs: Last Vital Signs Temp 97.2 F 11/07/22 02:29 Pulse 79 11/07/22 13:58 Resp 98 H 11/07/22 13:58 BP 142/65 H 11/07/22 13:58 Pulse Ox 98 11/07/22 13:58 O2 Del Method 11/07/22 13:58 BMI result Body Mass Index 25.7 Const: Other: Constitutional : Awake, interactive, not in distress Neck : Normal inspection, Supple Cardiovascular : RRR, no JVP, no lower extremity edema Respiratory : good bilateral air entry, no crackles, wheezes or rhonchi Gastrointestinal: soft, lax, Normal bowel sounds, Non tender Skin : Warm, Dry Neurological : Alert & oriented x3, No focal deficit , CN 2-12 within normal Objective Data Active Medications Aspirin (Aspirin Enteric Coated 81 Mg Tablet.) 81 mg PO DAILY@1700 [facility] Atorvastatin Calcium (Atorvastatin Calcium 40 Mg Tablet) 40 mg PO DAILY@1200 [facility] Last Admin: 11/07/22 11:34 Dose: 40 mg Documented By: JUNIOR Heparin Sodium (Porcine) (Heparin Sodium,Porcine 5,000 Unit/Ml Vial) 5,000 unit SUBCUT Q12H [facility] Last Admin: 11/07/22 07:54 Dose: 5,000 unit Documented By: JUNIOR Sodium Chloride (Ns) 500 mls @ 100 mls/hr IV .Q5H [facility] Stop: 11/07/22 15:59 Last Admin: 11/07/22 11:35 Dose: 100 mls/hr Documented By: JUNIOR Insulin Glargine (Insulin Glargine,Hum.Rec.Anlog 100 Unit/Ml 10 Ml Vial) 10 unit SUBCUT BEDTIME [facility] Insulin Human Lispro (Insulin Lispro 100 Unit/Ml 3 Ml Vial) 0 unit SUBCUT QIDACHS [facility]; Protocol Last Admin: 11/07/22 12:49 Dose: Not Given Documented By: LIA Non-Admin Reason: No Insulin Coverage Levothyroxine Sodium (Levothyroxine Sodium 100 Mcg Tablet) 100 mcg PO DAILY@0600 [facility] Lisinopril (Lisinopril 20 Mg Tablet) 20 mg PO DAILY [facility]; Protocol Last Admin: 11/07/22 10:20 Dose: 20 mg Documented By: JUNIOR Lorazepam (Lorazepam 1 Mg Tablet) 1 mg PO TID PRN PRN Reason: Anxiety Last Admin: 11/07/22 10:33 Dose: 1 mg Documented By: JUNIOR Melatonin (Melatonin 3 Mg Tablet) 6 mg PO BEDTIME PRN PRN Reason: Insomnia Melatonin (Melatonin 3 Mg Tablet) 3 mg PO BEDTIME [facility] Metformin HCl (Metformin Hcl Er 500 Mg Tab.Er.24h) 500 mg PO BIDWM [facility] Non-Formulary Medication (Repaglinide) 0.5 mg PO DAILY [facility] Non-Formulary Medication (Repaglinide) 1 mg PO BID@1200,1700 [facility] Olanzapine (Olanzapine 2.5 Mg Tablet) 2.5 mg PO BEDTIME [facility] Paroxetine HCl (Paroxetine Hcl 40 Mg Tablet) 40 mg PO DAILY@1200 [facility] Last Admin: 11/07/22 11:34 Dose: 40 mg Documented By: JUNIOR Pharmacy Consult (Consult Rx Perform Med Rec) 1 each MISCELLANE ONCE PRN PRN Reason: Consult order Quetiapine Fumarate (Quetiapine Fumarate 25 Mg Tablet) 25 mg PO TID [facility] Last Admin: 11/07/22 10:35 Dose: 25 mg Documented By: JUNIOR Sodium Zirconium Cyclosilicate (Sodium Zirconium Cyclosilicate 10 Gm Powd.Pack) 10 gm PO DAILY [facility] Last Admin: 11/07/22 10:21 Dose: 10 gm Documented By: JUNIOR Labs CBC & Chem 7: 11/06/22 10:19 11/07/22 12:59 Labs: Laboratory Results - last 24 hr 11/06/22 11/06/22 11/06/22 16:24 20:06 21:43 Anion Gap 14 15 Estim Creat Clear Calc 25.2 23.5 Estimated GFR 31 29 POC Glucose 243 H Random Glucose 66 216 H Calcium 9.9 9.5 Iron TIBC % Saturation Unsat Iron Binding Ferritin 11/06/22 11/07/2222 22:08 04:33 07:15 Anion Gap 14 13 Estim Creat Clear Calc 23.7 Estimated GFR 29 POC Glucose 207 H Random Glucose 160 H Calcium 9.5 Iron 31 TIBC 318 % Saturation 10 L Unsat Iron Binding 287 Ferritin 14 11/07/22 11/07/22 12:45 12:59 Anion Gap 14 Estim Creat Clear Calc 26.7 Estimated GFR 33 POC Glucose 131 H Random Glucose 142 H Calcium 9.5 Iron TIBC % Saturation Unsat Iron Binding Ferritin Assessment and Plan (1) SRIRAM (acute kidney injury): Status: Acute (2) Hyperkalemia: Status: Acute Plan 82 year old female with past medical history as listed below inlcuding history of lymphoma and leukemia (no details), DM, h/o stroke with residual aphasia and apraxia here with SRIRAM and hyperkalemia #Hyperkalemia likely related to CKDIIAnd increased dose of lisinopril recently [facility] Repeat labs later and give additional [facility] nephrology input appreciated , start IVF Follow BMP # microcytic anemia Hb of 9 from baseline around 11 2 years ago Low iron saturation, low ferritin and iron level Start supplement iron #elevated troponin I 98 -->90, ECG no acute ischemic changes, no symptoms likely from renal failure, no further testing at this time #Diabetes Hold metformin, SSI, continue home dose of lantus 15 #HLD Lipitor #Anxiety Ativan Full code DVT: heparin patient will need overnight hospital stay continue management for abnormal kidney function and hyperkalemia Time Spent With Patient Time: Total time managing care of this patient today ____ minutes. Quality Stroke Does the patient have a stroke diagnosis?: No VTE Prior VTE?: No VTE Risk Level:: Medical - moderate - high VTE Device Contraindication: Treatment Not Indicated VTE Drug Contraindication: N/A - Med Ordered
--- NOTE | 2022-11-07 15:42 | MHC.CM.PN ---
Patient remains admitted in ER. Patient was changed to inpatient. Met with patient and daughter Gena. IMM explained and signed.
[2022-11-07] MEDS: Aspirin Enteric Coated 81 MG TABLET.DR PO (15:51)
[2022-11-07] MEDS: metFORMIN HCl ER 500 MG TAB.ER.24H PO (15:52)
[2022-11-07] MEDS: Ferrous Sulfate 324 MG TABLET.DR PO (15:52)
[2022-11-07] MEDS: Sodium Polystyrene Sulfon/Sorb 15 GM/60 ML ORAL.SUSP 30 GM PO (15:52)
--- NOTE | 2022-11-07 15:59 | PC.NURSE ---
pt. alert and disoriented. much more relaxed. states hop. bed feels better. gave her her meds. daughter and grand daughter at bedside
[2022-11-07 20:00] VITALS: BP 156/70; PULSE 93; RESP 16; TEMP 37.2; O2SAT 95
[2022-11-07] MEDS: Melatonin 3 MG TABLET PO (21:38)
[2022-11-07] MEDS: OLANZapine 2.5 MG TABLET PO (21:39)
[2022-11-07] MEDS: hydrOXYzine HCL 25 MG TABLET PO (22:26)
[2022-11-07] MEDS: Melatonin 3 MG TABLET 6 MG PO (22:26)
[2022-11-07 23:32] VITALS: BP 116/58; PULSE 80; RESP 16; TEMP 36.5; O2SAT 95
[2022-11-08 04:00] VITALS: BP 112/88; PULSE 69; RESP 18; TEMP 36.2; O2SAT 94
[2022-11-08 07:47] LABS: Anion Gap 13 (12-20); Blood Urea Nitrogen 36 mg/dL (9-16); Calcium 8.7 mg/dL (8.4-10.2); Carbon Dioxide 22 mmol/L (22-29); Chloride 111 mmol/L (96-108); Creatinine Clr Calc Pharmacy 23.9; Estimated Glomerular Filt Rate 29; Glucose Random 146 mg/dL (60-115); Potassium 4.2 mmol/L (3.3-5.1); Sodium 142 mmol/L (135-145)
[2022-11-08 08:00] VITALS: BP 154/67; PULSE 66; RESP 18; TEMP 36.3; O2SAT 92
[2022-11-08] MEDS: Insulin Lispro 100 UNIT/ML 3 ML VIAL SUBCUT ×2 (08:33→11:54)
[2022-11-08] MEDS: metFORMIN HCl ER 500 MG TAB.ER.24H PO (08:34)
[2022-11-08] MEDS: Ferrous Sulfate 324 MG TABLET.DR PO (08:34)
[2022-11-08] MEDS: Heparin Sodium,Porcine 5,000 UNIT/ML VIAL 5000 UNIT SUBCUT (08:34)
[2022-11-08] MEDS: QUEtiapine Fumarate 25 MG TABLET PO (08:34)
[2022-11-08] MEDS: lisinopriL 20 MG TABLET PO (08:35)
[2022-11-08] MEDS: Sodium Zirconium Cyclosilicate 10 GM POWD.PACK PO (10:50)
--- NOTE | 2022-11-08 11:35 | PM.DS ---
DS: Providers Provider Date of Service: 11/08/22 Date of admission: 11/06/22 18:40 Primary care physician: Teri Fernández NP Consults: 11/06/22 18:43 Consult to Nephrology Routine Consulting Provider: Candelario Maldonado Reason for consultation: SRIRAM, hyperkalemia Has provider been notified: No DS: Diagnosis Discharge Diagnosis (1) SRIRAM (acute kidney injury): Status: Acute (2) Hyperkalemia: Status: Acute DS: Summary Hospital Course Hospital Course: admission note HPI 82 year old female with past medical history as listed below inlcuding history of lymphoma and leukemia (no details), DM, h/o stroke with residual aphasia and apraxia who had routine lab work done at her oncology office at [facility] and was called for a critical potassium and Creatinine level but was told she could wait till the next day to go to ED. She came in at 10 this morning and her potassium was 6.7. She was treated with insulin, calcium gluconate, lasix , albuterol Neb and repeat K at 5.8 at 1600 and is now getting Lokelma. Her Creatine ranges from 1.4 to 1.6, baseline is not available (she goes to [facility]). Apart from abnrmal labs she has no other complaint, she takes no K supplement or consumes food high in K Hospital course The patient was admitted to the hospital for evaluation of worsening kidney function and elevated potassium level. Renal ultrasound was negative for any obstruction. Responded well to IV fluid in addition of Lokelma with potassium level dropping from 5.7-4.2 the next morning. Seen by Nephrology team who foot the patient out in the clinic. To repeat blood test next week as the patient will continue on Lokelma at time of discharge. Noted to have evidence of microcytic anemia. Has low iron and ferritin levels. Started on iron supplement. Started on sliding scale insulin for elevated sugar levels. Lispro KwikPen was prescribed on discharge To start sliding scale at home. Patient to follow with her PCP for further adjustments of medications. To follow-up with Nephrology office as outpatient with Dr. Maldonado at [phone] Repeat blood work next week Monitor blood pressures and sugar levels for the next week and report readings to your PCP for further adjustments Time Spent with Patient Time attestation: Total time managing care of this patient today ____ minutes. Discharge coordination time: Greater than 30 minutes Quality: Safe Use of Opioids Does Pt have an Active Cancer Diagnosis on the Problem List?: No Quality: Stroke Does the patient have a stroke diagnosis?: No Physical Exam Vital Signs: Vital Signs: Last Vital Signs Temp 97.4 F 11/08/22 08:00 Pulse 66 11/08/22 08:00 Resp 18 11/08/22 08:00 BP 154/67 H 11/08/22 08:00 Pulse Ox 92 11/08/22 08:00 O2 Del Method 11/08/22 08:00 BMI result Body Mass Index 25.7 Const: Other: Constitutional : Awake, interactive, not in distress Neck : Normal inspection, Supple Cardiovascular : RRR, no JVP, no lower extremity edema Respiratory : good bilateral air entry, no crackles, wheezes or rhonchi Gastrointestinal: soft, lax, Normal bowel sounds, Non tender Skin : Warm, Dry Neurological : Alert & oriented x3, No focal deficit DS: Data Data Completed and Pending Labs on day of discharge: Laboratory Results - last 24 hr 11/07/22 11/07/22 11/07/22 12:45 12:59 18:30 Sodium 141 Potassium 5.3 H Chloride 111 H Carbon Dioxide 21 L Anion Gap 14 BUN 36 H Creatinine 1.51 H Estim Creat Clear Calc 26.7 Estimated GFR 33 POC Glucose 131 H 216 H Random Glucose 142 H Calcium 9.5 11/07/22 11/08/22 11/08/22 20:04 05:23 07:56 Sodium 142 Potassium 4.2 D Chloride 111 H Carbon Dioxide 22 Anion Gap 13 BUN 36 H Creatinine 1.69 H Estim Creat Clear Calc 23.9 Estimated GFR 29 POC Glucose 188 H 176 H Random Glucose 146 H Calcium 8.7 D 11/08/22 11:29 Sodium Potassium Chloride Carbon Dioxide Anion Gap BUN Creatinine Estim Creat Clear Calc Estimated GFR POC Glucose 275 H Random Glucose Calcium Imaging Chest x-ray: Radiologist's impression: ITS Impressions Renal Ultrasound 11/07/22 10:53 IMPRESSION: Normal appearance of the kidneys. Discharge Plan Discharge Anticipated Discharge Date/Time: 11/08/22 11:22 Patient Disposition: Home Health Service Discharge Diagnosis: Worsening kidney function Elevated potassium Referrals: [facility] [Outside] - 1 Week Teri Fernández NP [Primary Care Provider] - 1 Week Discharge Medications: New ferrous sulfate 324 mg (65 mg iron) Tablet,Delayed Release (Dr/Ec) 324 mg PO DAILY 90 Days Qty: 90 0RF Lokelma 10 gram Powder In Packet 10 g PO DAILY 30 Days Qty: 30 0RF insulin lispro [Humalog KwikPen Insulin] 100 unit/mL insulin pen See Protocol subcut TID Qty: 15 2RF Protocol: Insulin Correction Scale Less than or equal to 110 ---- Give (units): 0 111 to 150 Give (units): 0 151 to 200 Give (units): 2 201 to 250 Give (units): 4 251 to 300 Give (units): 6 301 to 350 Give (units): 8 Greater than 350 Give (units): 10 Call MD if Blood Glucose > : 350 Continued quetiapine 25 mg Tablet 12.5 mg PO QID atorvastatin 40 mg Tablet 40 mg PO DAILY@1200 lisinopril 20 mg Tablet 20 mg PO DAILY melatonin 3 mg Tablet 3 mg PO BEDTIME olanzapine 2.5 mg Tablet 2.5 mg PO BEDTIME aspirin 81 mg Tablet,Delayed Release (Dr/Ec) 81 mg PO DAILY@1700 levothyroxine 100 mcg Tablet 100 mcg PO DAILY@0600 repaglinide 0.5 mg Tablet 0.5 mg PO DAILY Rx Instructions: administer within 30 minutes of a meal or snack. 0.5 mg in am, 1 mg in afternoon, 1 mg in evening repaglinide 0.5 mg Tablet 1 mg PO BID@1200,1700 Rx Instructions: administer within 30 minutes of a meal or snack. 0.5 mg in am, 1 mg in afternoon, 1 mg in evening paroxetine HCl 40 mg Tablet 40 mg PO DAILY@1200 metformin 500 mg tablet extended release 24 hr 500 mg PO BIDWM insulin glargine [Lantus Solostar U-100 Insulin] 100 unit/mL (3 mL) insulin pen 15 unit subcut BEDTIME (DME) pen needle, diabetic [BD Ultra-Fine Laura Pen Needle] 32 gauge x 5/32 needle See Rx Instructions .ROUTE .MEDSUPPLY Qty: 50 Rx Instructions: As directed lorazepam 1 mg tablet 1 mg PO TID PRN (Reason: Anxiety) Discharge Orders: Discharge Order (Routine); Ordered 11/08/22 Ordered By: Amelia Vora Diet: Advance to usual diet Activity on Discharge: As tolerated Stand Alone Forms: Patient Portal Discharge page Other Ambulatory Orders: Basic Metabolic Panel (Routine) Timeframe: 5 Days Facility: [facility] - Location: Laboratory Ordered By: Amelia Vora Care Plan Goals: Read below Health Concerns: Read below Plan of Treatment: Read below Assessment: you were admitted to the hospital for evaluation of abnormal lab values. Found to have evidence of worsening kidney function associated with elevated potassium levels that were controlled with adding Lokelma. Noted to have elevated sugar level as you were started on sliding scale along with Lantus and metformin. To follow-up with Nephrology office as outpatient with Dr. Maldonado at [phone] Repeat blood work next week Monitor blood pressures and sugar levels for the next week and report readings to your PCP for further adjustments
[2022-11-08] MEDS: Atorvastatin Calcium 40 MG TABLET PO (12:09)
[2022-11-08] MEDS: PARoxetine HCL 40 MG TABLET PO (12:09)
--- NOTE | 2022-11-08 13:51 | MHC.CM.PN ---
Addendum entered by Natalie Morales 11/08/22 15:28: CM CALLED PTS DAUGHTER, GALA [phone] AND CONFIRMED PTS PCP IS CARL CARTER, SHE SEES HER AT [facility] IN [place] Original Note: PT DISCHARGED HOME TODAY WITH [facility] TO TRANSPORT
== END 2022-11-08 12:41 | disposition home health service (06) | DRG 641 ==
LOC: HO.ED 16:32 → HO.EDOVER 11-07 07:35 → HO.S3 11-07 18:40
PROVIDERS: Internal Medicine; Internal Medicine Nephrology; Student in an Organized Health Care Education/Training Program; Admitting Provider Internal Medicine; Emergency Provider Emergency Medicine; PCP Nurse Practitioner Family; Visit Provider Student in an Organized Health Care Education/Training Program
DX: E87.5 Hyperkalemia (principal); N17.9 Acute kidney failure, unspecified; I12.9 Hypertensive chronic kidney disease with stage 1 through stage 4 chronic kidney disease, or unspecified chronic kidney disease; N18.2 Chronic kidney disease, stage 2 (mild); E11.22 Type 2 diabetes mellitus with diabetic chronic kidney disease; F41.9 Anxiety disorder, unspecified; D63.1 Anemia in chronic kidney disease; E03.9 Hypothyroidism, unspecified; D50.9 Iron deficiency anemia, unspecified; I69.320 Aphasia following cerebral infarction; I69.390 Apraxia following cerebral infarction; Z20.822 Contact with and (suspected) exposure to COVID-19; Z88.0 Allergy status to penicillin; Z88.8 Allergy status to other drugs, medicaments and biological substances; Z79.4 Long term (current) use of insulin; Z79.82 Long term (current) use of aspirin; Z79.84 Long term (current) use of oral hypoglycemic drugs; Z79.890 Hormone replacement therapy; Z79.899 Other long term (current) drug therapy
CPT/HCPCS: 0241U; 36415; 76775; 80048; 80051; 80053; 81003; 82248; 82728; 82947; 83540; 83690; 83735; 83880; 84484; 85025; 93005; 94640; 99218; 99285; J0610; J1940

== ENCOUNTER 2022-11-20 11:34 | Outpatient (REF) | payer MEDICARE, SELFPAY ==
[2022-11-20 14:40] LABS: Anion Gap 11 (12-20); Blood Urea Nitrogen 23 mg/dL (9-16); Calcium 9.3 mg/dL (8.4-10.2); Carbon Dioxide 27 mmol/L (22-29); Chloride 107 mmol/L (96-108); Estimated Glomerular Filt Rate 43; Glucose Random 121 mg/dL (60-115); Potassium 4.4 mmol/L (3.3-5.1); Sodium 141 mmol/L (135-145)
== END 2022-11-20 11:35 | disposition home or self-care (01) ==
LOC: HO.10HDL 11:34
PROVIDERS: Absent Provider Nurse Practitioner Family; Visit Provider Student in an Organized Health Care Education/Training Program
DX: N17.9 Acute kidney failure, unspecified (principal); E87.5 Hyperkalemia
CPT/HCPCS: 36415; 80048

== ENCOUNTER 2023-03-24 13:53 | Outpatient (REF) | payer MEDICARE, SELFPAY ==
--- NOTE | ~2023-03-24 | XR_ITS ---
EXAMINATION: XR HIP, LEFT CLINICAL INFORMATION: Hip fracture COMPARISON: None available. TECHNIQUE: Two views of the left hip and one view of the pelvis. FINDINGS: There are 3 screws transfixing a left femoral neck fracture. Fracture line is still seen. The left hip joint is otherwise normal. Bones of the pelvis are normal. Soft tissues are normal. XR/XR hip LT w PEL1V IMPRESSION: ORIF of left femoral neck fracture.
== END 2023-03-24 13:54 | disposition home or self-care (01) ==
LOC: HO.XRAY 13:53
PROVIDERS: PCP Nurse Practitioner Family; Visit Provider Nurse Practitioner Family
DX: S72.002S Fracture of unspecified part of neck of left femur, sequela (principal); S72.14 Intertrochanteric fracture of femur; X58.XXXD Exposure to other specified factors, subsequent encounter
CPT/HCPCS: 73502

== ENCOUNTER 2023-04-01 15:14 | Outpatient (REF) | payer MEDICARE, SELFPAY ==
--- NOTE | ~2023-04-01 | XR_ITS ---
EXAMINATION: XR CHEST CLINICAL INFORMATION: Chronic cough COMPARISON: Chest radiographs 06/11/2022, 07/15/2020, 08/19/2019 TECHNIQUE: 2 views of the chest were obtained. FINDINGS: There are low lung volumes. There is minor crowding of the bronchovascular markings at the bases. No lobar or segmental airspace consolidation or focal groundglass opacity. No subsegmental atelectasis. The costophrenic sulci are clear. The cardiac and hilar and mediastinal contours and bony structures are unremarkable. XR/XR chest 2V IMPRESSION: -Low lung volumes with some mild hypoventilatory changes at the bases. -No airspace consolidation or effusion. No segmental atelectasis.
== END 2023-04-01 15:15 | disposition home or self-care (01) ==
LOC: HO.XRAY 15:14
PROVIDERS: PCP Nurse Practitioner Family; Visit Provider Nurse Practitioner Family
DX: R05.3 Chronic cough (principal)
CPT/HCPCS: 71046

== ENCOUNTER 2023-04-29 18:15 | Emergency (ER) | payer MEDICARE, SELFPAY ==
--- NOTE | ~2023-04-29 | CT_ITS ---
EXAMINATION: Head and cervical spine and facial bone CT without IV contrast CLINICAL INFORMATION: Trauma COMPARISON: Previous head and cervical spine CT April 2020 TECHNIQUE: Axial images through the head cervical spine and facial bones without contrast. Sagittal and coronal reconstructions on the technologist workstation were performed. Patient dose 124 4 mg/cm. This CT examination was performed using dose optimization techniques as appropriate, variously including the following: *Automated exposure control *Adjustment of mA and/or kV according to patient size (this includes techniques or standardized protocols for targeted exams where dose is matched to indication/reason for exam; i.e. extremities or head) *Use of iterative reconstruction technique FINDINGS: Head CT: There is no evidence of an extra-axial collection. There is no evidence of intra or extra-axial hemorrhage. The ventricles and extra-axial CSF spaces are prominent suggestive of generalized atrophy. There is nonspecific periventricular white matter disease. 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 No skull fracture. There is soft tissue swelling over the right side of the face and preseptal soft tissue swelling over the right orbit. Cervical spine CT: Slight head tilt to the right and curvature of the lower cervical spine to the left. Bone alignment is otherwise normal. No fracture or dislocation. Mild degenerative spondylosis at CC 5 6. Disc spaces are normal. Prevertebral soft tissues are normal. Bilateral carotid calcification. Shotty cervical lymphadenopathy. Visualized lung apices are clear. Facial bone CT: Bone alignment is normal. No fracture or dislocation. Membranous soft tissue thickening in the right maxillary sinus. The paranasal sinuses, mastoid air cells and middle ears are otherwise air. There is soft tissue swelling over the right side of the face and preseptal soft tissue swelling over the right orbit. Post orbital soft tissues are normal. CT/CT cervical spine wo IV con IMPRESSION: Head CT: No acute findings. 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 Generalized atrophy and nonspecific. The right matter disease. Cervical spine CT: Degenerative changes. No fracture or dislocation. Facial bone CT: No fracture. Soft tissue swelling over the right face and orbit.
--- NOTE | 2023-04-29 18:52 | ED.FALL ---
HPI - Fall General Chief Complaint: Head Injury Stated Complaint: fell, eye lac Time Seen by Provider: 04/29/23 20:31 Source: patient and family ( and daughter) Mode of arrival: ambulatory Limitations: no limitations History of Present Illness HPI Narrative: 82-year-old female history of lymphoma, leukemia, DM, CVA with residual aphasia and apraxia. Patient normally lives with her and daughter at home mostly independent use a walker to ambulate inside the house, patient was sitting on the toilet seat when she got up lost balance and tool distributor to the walker fell hitting her right side of her face into the shower faucet causing laceration to the right temporal area. No active bleeding, no AC. Family and stated that the patient just had a routine workup done by her oncologist about a week ago and was unremarkable. Patient otherwise complains of no symptoms. Related Data Home Medications Medication Instructions Recorded Confirmed lorazepam 1 mg tablet 1 mg PO TID PRN Anxiety 11/22/20 11/06/22 pen needle, diabetic 32 gauge x #50 ea 11/22/20 11/22/20 (BD Ultra-Fine Laura Pen Needle) aspirin 81 mg tablet,delayed 81 mg PO DAILY@1700 11/06/22 11/06/22 release atorvastatin 40 mg tablet 40 mg PO DAILY@1200 11/06/22 11/06/22 insulin glargine 100 unit/mL (3 15 unit subcut BEDTIME 11/06/22 11/06/22 mL) subcutaneous pen (Lantus Solostar U-100 Insulin) levothyroxine 100 mcg tablet 100 mcg PO DAILY@0600 11/06/22 11/06/22 lisinopril 20 mg tablet 20 mg PO DAILY 11/06/22 11/06/22 melatonin 3 mg tablet 3 mg PO BEDTIME 11/06/22 11/06/22 metformin 500 mg tablet,extended 500 mg PO BIDWM 11/06/22 11/06/22 release 24 hr olanzapine 2.5 mg tablet 2.5 mg PO BEDTIME 11/06/22 11/06/22 paroxetine HCl 40 mg tablet 40 mg PO DAILY@1200 11/06/22 11/06/22 quetiapine 25 mg tablet 12.5 mg PO QID 11/06/22 11/06/22 repaglinide 0.5 mg tablet 0.5 mg PO DAILY 11/06/22 11/06/22 repaglinide 0.5 mg tablet 1 mg PO BID@1200,1700 11/06/22 11/06/22 Previous Rx's Medication Instructions Recorded ferrous sulfate 324 mg (65 mg 324 mg PO DAILY 90 days #90 tabs 11/08/22 iron) tablet,delayed release insulin lispro 100 unit/mL See Protocol subcut TID #15 mL 11/08/22 subcutaneous pen (Humalog KwikPen (U-100) Insulin) sodium zirconium cyclosilicate 10 10 g PO DAILY 30 days #30 ea 11/08/22 gram oral powder packet (Lokelma) Allergies Allergy/AdvReac Type Severity Reaction Status Date / Time prednisone [PREDNISONE] Allergy Severe ANAPHYLAXIS, Verified 04/29/23 18:53 mental status change Amox Allergy Unknown ineffective Uncoded 06/11/22 08:44 Review of Systems Review of Systems: All other systems are reviewed and are negative Constitutional: Reports as per HPI and Reports no additional constitutional complaints Eyes: Reports as per HPI and Reports no additional eye complaints Reports system reviewed and no additional complaints, except as documented Cardiovascular: Reports as per HPI and Reports no additional cardiovascular complaints Respiratory: Reports as per HPI and Reports no additional respiratory complaints Gastrointestinal: Reports as per HPI and Reports no additional gastrointestinal complaints Genitourinary: Reports no additional female genitourinary complaints Musculoskeletal: Reports no additional musculoskeletal complaints Skin/Breast: Reports system reviewed and no additional complaints, except as docu Psychiatric: Reports no additional psychiatric complaints Endocrine: Reports no additional endocrine complaints Hematologic/Lymphatic: Reports no additional hematologic/lymphatic complaints Allergic/Immunologic: Reports no additional allergic/immunologic complaints Reports system reviewed and no additional complaints, except as documented and Reports Abnormal speech present [facility] Past Medical History Medical History Controlled diabetes mellitus without complication, with long-term current use of insulin Controlled diabetes mellitus without complication, without long-term current use of insulin Essential hypertension Hyperlipidemia LDL goal <70 Hypothyroidism Leukemia Lymphoma Stroke Social History Social History Household Members: Family Household Members Other:: Spouse: Darnell Housing: House Do you presently have visiting nurse or other home services: No Alcohol intake: never Patient Tobacco Use Status: Never used Tobacco Smoked in Last 30 Days: No Use of substances other than those prescribed or required for medical reasons: No Advance Directives: No Advance Directives Information Provided: No service: No Current occupational status: retired Physical Exam Vital Signs: Vital Signs: Last Vital Signs Temp 98.3 F 04/29/23 19:17 Pulse 77 04/29/23 19:17 Resp 17 04/29/23 19:17 BP 193/74 H 04/29/23 19:17 Pulse Ox 95 04/29/23 19:17 O2 Del Method Room Air 04/29/23 19:17 BMI result Body Mass Index 25.0 Vital signs have been reviewed as appeared to be correct. Blood pressure normal. Heart rate normal. Respiration rate normal. Temperature normal. Oxygen saturation normal. Appearance: Alert. Oriented X3. No acute distress. Head: 3 cm area of clean cut to the right temporal area, no active bleeding, areas of subconjunctival hemorrhage to the right eye. Normal external exam. Normocephalic. Atraumatic. No Jernigan signs noted. No raccoon eyes noted Eyes: PERRLA. EOMI. Conjunctiva and sclera normal. Eyelids normal. ENT: TM's Normal. Pharynx normal. Uvula midline. Moist mucous membranes. No trismus noted. No drooling noted. No muffled voice noted. Neck: Normal inspection. Neck supple. FROM. No adenopathy. Thyroid Normal. No meningeal signs. No neck mass noted. CVS: Normal heart rate and rhythm. Heart sound normal. No murmurs noted. Pulses normal throughout. Respiratory: No respiratory distress. Painless inspiration. Breath sounds normal. No wheezes/rales/rhonchi noted. Chest nontender. No accessory muscle usage noted or decreased air movement noted. Abdomen: Soft and nontender. Bowel sounds normal in all 4 quadrants. No distention noted. No organomegaly noted. No visible injury noted. Back: No CVA tenderness. Full range of motion noted. Skin: Skin warm and dry. Normal skin color. Normal skin turgor. No rashes/lesions/lacerations noted. Extremities: No lower extremity edema. Extremities exhibit normal range of motion. Extremities nontender. Neuro: Oriented X 3. Cranial nerve exam: II-XII are grossly intact No motor deficit. No sensory deficit. Reflexes normal. Course Course Course Narrative: RME: 82-year-old female w/PMHx HTN, HLD, DM, c/o headache, facial pain, and laceration s/p falling off toilet into shower around 1hr ON SITE NURSE. Denies LOC or taking AC. + right-sided facial swelling and ecchymosis noted with 3 cm laceration noted to right side of eye. +right eye subconjunctival hemmorrhage CT Face/Head/C-spine & Tdap ordered Full HPI, ROS and PE to be performed by primary ED provider. Reevaluation(s) Reevaluation #1: Status post mechanical fall and the right facial laceration that has been repaired with Dermabond, patient was GCS of [address], unremarkable labs. Time: 21:22 Medications Administered Discontinued Medications Generic Name Dose Route Start Last Admin Trade Name Freq PRN Reason Stop Dose Admin Diphtheria/Tetanus/Acell Pertussis 0.5 ml 04/29/23 18:59 04/29/23 19:24 Diphth,Pertus(Acell),Tet Adult 0.5 Ml Syringe IM 04/29/23 19:00 0.5 ml .ONCE ONE Administration Medical Decision Making Differential Diagnosis Differential Diagnoses: The differential diagnosis associated with the presentation includes (Intracranial bleed, facial laceration, cervical spine injury.) Admission/Observation Consideration of admission/observation: Escalation of care including admission/observation considered Lab Data MDM Lab Attestation statement: I reviewed the patient's lab results. Independent Interpretation I performed an independent interpretation of an: CT Scan (Head/cervical spine/C-spine: No acute pathology.) Radiology Impression Discussion of test interpretation with radiology: I have reviewed the radiologist's reading. Discharge Plan Discharge Clinical Impression: Closed head injury, Facial laceration Patient Disposition: Home, Self-Care Instructions: Head Injury (ED), Skin Adhesive Care (ED) Prescriptions: No Action quetiapine 25 mg Tablet 12.5 mg PO QID atorvastatin 40 mg Tablet 40 mg PO DAILY@1200 lisinopril 20 mg Tablet 20 mg PO DAILY melatonin 3 mg Tablet 3 mg PO BEDTIME olanzapine 2.5 mg Tablet 2.5 mg PO BEDTIME aspirin 81 mg Tablet,Delayed Release (Dr/Ec) 81 mg PO DAILY@1700 levothyroxine 100 mcg Tablet 100 mcg PO DAILY@0600 repaglinide 0.5 mg Tablet 0.5 mg PO DAILY Rx Instructions: administer within 30 minutes of a meal or snack. 0.5 mg in am, 1 mg in afternoon, 1 mg in evening repaglinide 0.5 mg Tablet 1 mg PO BID@1200,1700 Rx Instructions: administer within 30 minutes of a meal or snack. 0.5 mg in am, 1 mg in afternoon, 1 mg in evening paroxetine HCl 40 mg Tablet 40 mg PO DAILY@1200 metformin 500 mg tablet extended release 24 hr 500 mg PO BIDWM insulin glargine [Lantus Solostar U-100 Insulin] 100 unit/mL (3 mL) insulin pen 15 unit subcut BEDTIME ferrous sulfate 324 mg (65 mg iron) Tablet,Delayed Release (Dr/Ec) 324 mg PO DAILY 90 Days Qty: 90 0RF Lokelma 10 gram Powder In Packet 10 g PO DAILY 30 Days Qty: 30 0RF insulin lispro [Humalog KwikPen Insulin] 100 unit/mL insulin pen See Protocol subcut TID Qty: 15 2RF Protocol: Insulin Correction Scale Less than or equal to 110 ---- Give (units): 0 111 to 150 Give (units): 0 151 to 200 Give (units): 2 201 to 250 Give (units): 4 251 to 300 Give (units): 6 301 to 350 Give (units): 8 Greater than 350 Give (units): 10 Call MD if Blood Glucose > : 350 (DME) pen needle, diabetic [BD Ultra-Fine Laura Pen Needle] 32 gauge x 5/32 needle See Rx Instructions .ROUTE .MEDSUPPLY Qty: 50 Rx Instructions: As directed lorazepam 1 mg tablet 1 mg PO TID PRN (Reason: Anxiety) Referrals: Teri Fernández NP [Primary Care Provider] -
[2023-04-29 18:53] VITALS: BP 176/65; PULSE 78; RESP 18; TEMP 36.3; O2SAT 97; BMI 25.0
[2023-04-29 19:17] VITALS: BP 193/74; PULSE 77; RESP 17; TEMP 36.8; O2SAT 95
[2023-04-29] MEDS: Diphth,Pertus(ACell),Tet Adult 0.5 ML SYRINGE IM (19:24)
--- NOTE | 2023-04-29 19:31 | PC.NURSE ---
pt assessed bleeding controlled, tolerated tetanus inj
--- NOTE | 2023-04-29 21:49 | PC.NURSE ---
pt assessed at d/c, no active bleeding observed 2 assist to the wheelchair
== END 2023-04-29 21:51 | disposition home or self-care (01) ==
PROVIDERS: Emergency Provider Emergency Medicine; PCP Nurse Practitioner Family
DX: S01.111A Laceration without foreign body of right eyelid and periocular area, initial encounter (principal); S00.211A Abrasion of right eyelid and periocular area, initial encounter; R51.9 Headache, unspecified; M54.2 Cervicalgia; W01.10XA Fall on same level from slipping, tripping and stumbling with subsequent striking against unspecified object, initial encounter; Y93.9 Activity, unspecified; Y92.9 Unspecified place or not applicable; Y99.9 Unspecified external cause status; Z79.899 Other long term (current) drug therapy; Z79.4 Long term (current) use of insulin; Z23 Encounter for immunization
CPT/HCPCS: 70450; 70486; 72125; 90471; 90715; 99284

== ENCOUNTER 2023-07-04 11:26 | Outpatient (REF) | payer MEDICARE, SELFPAY ==
--- NOTE | ~2023-07-04 | XR_ITS ---
EXAMINATION: XR HIP, RIGHT CLINICAL INFORMATION: Right hip pain COMPARISON: None available. TECHNIQUE: 3 views of the right hip and an AP pelvis. FINDINGS: There is mild diffuse osteopenia. No acute fracture. 3 compression screws are seen within the proximal left femur transfixing a femoral neck fracture. Alignment is anatomic. There is minimal narrowing of the cartilage space of the right hip with small marginal ossified extending off the femoral head there is minimal cartilage space narrowing of the left hip. The sacroiliac joints are within normal limits. The pubic symphysis is normal. XR/XR hip RT w PEL1V IMPRESSION: 1. Mild osteoarthritis of the hips. 2. Status post ORIF of right femoral neck fracture.
[2023-07-04 12:31] LABS: Hematocrit 32.2 % (37.0-47.0); Hemoglobin 10.5 g/dl (12.0-16.0); Mean Corpuscular HGB Conc 32.6 g/dl (31.0-35.0); Mean Corpuscular Hemoglobin 28.2 pg (27.0-33.0); Mean Corpuscular Volume 86.6 fL (80.0-98.0); Mean Platelet Volume 11.8 fL (9.4-12.3); Red Blood Count 3.72 X10*6/uL (4.20-5.50); Red Cell Distribution Width 14.3 % (11.0-16.0); White Blood Count 4.9 X10*3/uL (4.8-10.8)
[2023-07-04 12:43] LABS: Estimated Average Glucose 163 mg/dL; Hemoglobin A1c % 7.3 %
[2023-07-04 13:00] LABS: Platelet Count 86 X10*3/uL (160-400)
[2023-07-04 14:14] LABS: Alanine Aminotransferase 17 U/L (0-31); Albumin Level 3.6 g/dL (3.5-5.0); Alkaline Phosphatase 120 U/L (39-117); Anion Gap 15 (12-20); Aspartate Amino Transferase 21 U/L (5-31); Bilirubin Total 0.5 mg/dL (0.0-1.0); Blood Urea Nitrogen 29 mg/dL (9-16); Calcium 9.2 mg/dL (8.4-10.2); Carbon Dioxide 25 mmol/L (22-29); Chloride 105 mmol/L (96-108); Cholesterol 150 mg/dL; Estimated Glomerular Filt Rate 42; Glucose Random 306 mg/dL (60-115); HDL Cholesterol 38 mg/dL; LDL Cholesterol Calculated 99 mg/dl; Potassium 4.1 mmol/L (3.3-5.1); Sodium 141 mmol/L (135-145); Total Protein 6.3 g/dL (6.5-8.0); Triglycerides 68 mg/dL
[2023-07-04 14:30] LABS: Thyroid Stimulating Hormone 11.57 uIU/mL (0.32-4.0)
== END 2023-07-04 11:27 | disposition home or self-care (01) ==
LOC: HO.XRAY 11:26
PROVIDERS: PCP Nurse Practitioner Family; Visit Provider Nurse Practitioner Family
DX: I63.421 Cerebral infarction due to embolism of right anterior cerebral artery (principal); I10 Essential (primary) hypertension; E78.00 Pure hypercholesterolemia, unspecified; E03.9 Hypothyroidism, unspecified; E11.9 Type 2 diabetes mellitus without complications; M25.551 Pain in right hip
CPT/HCPCS: 36415; 73502; 80053; 80061; 83036; 84443; 85027

== ENCOUNTER 2023-08-05 08:03 | Outpatient (REF) | payer MEDICARE, SELFPAY ==
--- NOTE | ~2023-08-05 | CT_ITS ---
EXAMINATION: CT ABDOMEN AND PELVIS WITH CONTRAST CLINICAL INFORMATION: Pain and distention the abdomen COMPARISON: 11/09/2014 TECHNIQUE: Multidetector volumetric images were obtained from the superior aspect of the liver through the pubic symphysis following administration 85 mL of Omnipaque 350 intravenous contrast. Sagittal and coronal reformatted images were obtained on the technologist's workstation. Oral contrast: No This CT examination was performed using dose optimization techniques as appropriate, variously including the following: *Automated exposure control *Adjustment of mA and/or kV according to patient size (this includes techniques or standardized protocols for targeted exams where dose is matched to indication/reason for exam; i.e. extremities or head) *Use of iterative reconstruction technique DLP: 653 mGy-cm . FINDINGS: LUNG BASES: The visualized lung bases are unremarkable. There is questionable left axillary lymphadenopathy on the partially visualized, correlate with mammography. Coronary artery calcifications present. LIVER, GALLBLADDER, AND BILIARY TREE: Patient is status post cholecystectomy with pneumobilia and mild intrahepatic ductal dilatation. The rest of liver is unremarkable. CBD is dilated with questionable choledocholithiasis and with small amount of air the duct. Correlate with MRCP PANCREAS: Unremarkable. SPLEEN: Spleen is enlarged, measured 14.5 x 13.2 cm there is 2.4 cm splenule present ADRENAL GLANDS: Unremarkable. KIDNEYS AND URETERS: The kidneys are normal in size, shape, and attenuation. No hydronephrosis, hydroureter, or calculi seen. No perinephric stranding. BLADDER: Unremarkable. GASTROINTESTINAL TRACT: There is large amount of fecal debris in the colon.. There are mild changes of diverticulosis but no colitis or diverticulitis seen. Appendix is not seen. ABDOMINAL WALL: No significant hernia is appreciated. LYMPH NODES: There is extensive mesenteric lymphadenopathy with the lymph nodes between 1.0 and 2.9 cm in size. Findings highly suggestive for lymphoproliferative disease. VASCULAR: Unremarkable. 2.9 cm in the katharina hepatis PELVIC VISCERA: Unremarkable. OSSEOUS STRUCTURES: Patient is status post fracture of the left hip with hardware in place CT/CT abdomen pelvis w IV con IMPRESSION: 1. Extensive mesenteric lymphadenopathy highly suggestive for lymphoproliferative disease. 2. Splenomegaly. 3. Pneumobilia and dilated CBD with questionable choledocholithiasis. Correlate with MRCP. 4. Questionable left axillary lymphadenopathy. 5. Status post left hip arthroplasty. 6. Possible left axillary lymphadenopathy, correlate with mammography. 7. [facility] Best Practice Recommendations: Fleischner guidelines were followed.
[2023-08-05] MEDS: Barium Sulfate Oral (Berry) 450 ML ORAL.SUSP 900 ML PO (11:15)
[2023-08-05] MEDS: iohexoL 350 MG/ML 100 ML INFUS..BTL IV (11:16)
[2023-08-05 13:23] LABS: Creatinine POC 0.9 mg/dL (0.5-1.4); GFR POC > 60
== END 2023-08-05 08:04 | disposition home or self-care (01) ==
LOC: HO.CT 08:03
PROVIDERS: PCP Nurse Practitioner Family; Visit Provider Nurse Practitioner Family
DX: R10.84 Generalized abdominal pain (principal); R14.0 Abdominal distension (gaseous)
CPT/HCPCS: 74177; 82565; Q9967

== ENCOUNTER 2024-05-10 17:46 | Emergency (ER) | payer MEDICARE, SELFPAY ==
--- NOTE | ~2024-05-10 | CT_ITS ---
EXAMINATION: CT ABDOMEN AND PELVIS WITH CONTRAST CLINICAL INFORMATION: abd pain, elevated WBC COMPARISON: None. TECHNIQUE: Multidetector volumetric imaging was performed from the superior aspect of the liver through the pubic symphysis following administration of 85 mL Omnipaque 300 intravenous contrast. Sagittal and coronal reformatted images were obtained on the technologist workstation.. This CT examination was performed using dose optimization techniques as appropriate, variously including the following: *Automated exposure control *Adjustment of mA and/or kV according to patient size (this includes techniques or standardized protocols for targeted exams where dose is matched to indication/reason for exam; i.e. extremities or head) *Use of iterative reconstruction technique DLP: 1182 mGy-cm FINDINGS: LUNG BASES: Dependent airspace changes more likely due to atelectasis. Prominent coronary artery calcification and aortic valvular calcifications LIVER, GALLBLADDER, AND BILIARY TREE: The liver is normal in size, shape, and attenuation. No focal hepatic lesion or biliary ductal dilatation is present. Air in the biliary tract may reflect biliary prior papillotomy which could be clinically correlated. Gallbladder surgically absent. PANCREAS: Unremarkable. SPLEEN: Unremarkable. ADRENAL GLANDS: Unremarkable. KIDNEYS AND URETERS: The kidneys are normal in size, shape, and attenuation. No hydronephrosis, hydroureter, or perinephric stranding. No calculi. BLADDER: Unremarkable. GASTROINTESTINAL TRACT: The small and large bowel are unremarkable. The appendix is is not well delineated but no focal inflammatory changes seen in the right lower quadrant.. ABDOMINAL WALL: No significant hernia is appreciated. LYMPHOVASCULAR STRUCTURES: Enlarged mediastinal lymph nodes are again seen. These have decreased in size and conspicuity however from the 08/05/2023 CT scan when they were much more prominent PELVIC VISCERA: Unremarkable. OSSEOUS STRUCTURES: Degenerative changes in the spine. Left sided hip screws CT/CT abdomen pelvis w IV con IMPRESSION: Chronic appearing changes as described above.
--- NOTE | ~2024-05-10 | XR_ITS ---
EXAMINATION: CHEST 2 VIEWS CLINICAL INFORMATION: cough. COMPARISON: 04/01/2023. TECHNIQUE: AP frontal and lateral views of the chest obtained FINDINGS: The lungs are hypoexpanded with linear basilar markings more likely reflecting a component of atelectasis. No focal infiltrate, effusion, edema, or pneumothorax. Cardiac and mediastinal silhouettes are within normal limits for technique. No acute bony abnormality seen XR/XR chest 2V IMPRESSION: Hypoexpanded with linear basilar markings more likely reflecting a component of atelectasis.
[2024-05-10 18:05] VITALS: BP 157/61; PULSE 85; RESP 18; TEMP 36.6; O2SAT 96; BMI 31.9
--- NOTE | 2024-05-10 18:06 | ED_ITS ---
HPI - General Adult General Chief complaint: Urogenital-Female Stated complaint: UTI, referred by pcp Time Seen by Provider: 05/10/24 18:20 Source: patient and family (patient's daughter) Mode of arrival: ambulatory Limitations: no limitations History of Present Illness ED Provider: Patti Spencre PA-C HPI narrative: Patient is an 83 year old assigned female at with a history of dementia and lymphoma, currently on oral chemo following with [facility]/onc, presenting to the emergency department today with painful urination. Patient states that her doctor sent her in to get IV antibiotics for a possible urinary tract infection since she was having dysuria. Patient denies any dizziness, lightheadedness, abdominal pain, nausea, vomiting, fever, chills, blurry vision, double vision, loss of vision, chest pain, difficulty breathing, shortness of breath, back pain, night sweats, syncope or a near syncopal episode, recent trauma or falls, bowel incontinence, bladder incontinence, or any other complaints at this time. Patient's daughter states the last time her WBC count was measured was recently and was only in the 20s. Relieving factors: none Exacerbating factors: none Associated symptoms: denies other symptoms Treatments prior to arrival: none Related Data Home Medications ?Medication ?Instructions ?Recorded ?Confirmed lorazepam 1 mg tablet 1 mg PO TID PRN Anxiety 11/22/20 11/06/22 pen needle, diabetic 32 gauge x #50 ea 11/22/20 11/22/20 (BD Ultra-Fine Laura Pen Needle) aspirin 81 mg tablet,delayed 81 mg PO DAILY@1700 11/06/22 11/06/22 release atorvastatin 40 mg tablet 40 mg PO DAILY@1200 11/06/22 11/06/22 insulin glargine 100 unit/mL (3 15 unit subcut BEDTIME 11/06/22 11/06/22 mL) subcutaneous pen (Lantus Solostar U-100 Insulin) levothyroxine 100 mcg tablet 100 mcg PO DAILY@0600 11/06/22 11/06/22 lisinopril 20 mg tablet 20 mg PO DAILY 11/06/22 11/06/22 melatonin 3 mg tablet 3 mg PO BEDTIME 11/06/22 11/06/22 metformin 500 mg tablet,extended 500 mg PO BIDWM 11/06/22 11/06/22 release 24 hr olanzapine 2.5 mg tablet 2.5 mg PO BEDTIME 11/06/22 11/06/22 paroxetine HCl 40 mg tablet 40 mg PO DAILY@1200 11/06/22 11/06/22 quetiapine 25 mg tablet 12.5 mg PO QID 11/06/22 11/06/22 repaglinide 0.5 mg tablet 0.5 mg PO DAILY 11/06/22 11/06/22 repaglinide 0.5 mg tablet 1 mg PO BID@1200,1700 11/06/22 11/06/22 Previous Rx's ?Medication ?Instructions ?Recorded ferrous sulfate 324 mg (65 mg 324 mg PO DAILY 90 days #90 tabs 11/08/22 iron) tablet,delayed release insulin lispro 100 unit/mL See Protocol subcut TID #15 mL 11/08/22 subcutaneous pen (Humalog KwikPen (U-100) Insulin) sodium zirconium cyclosilicate 10 10 g PO DAILY 30 days #30 ea 11/08/22 gram oral powder packet (Lokelma) Allergies Allergy/AdvReac Type Severity Reaction Status Date / Time prednisone [PREDNISONE] Allergy Severe ANAPHYLAXIS, Verified 05/10/24 18:08 mental status change Amox Allergy Unknown ineffective Uncoded 06/11/22 08:44 Review of Systems 2 Constitutional: Constitutional: Reports no additional constitutional complaints, Denies chills, Denies fever(s) and Denies night sweats Eyes: Eyes: Reports no additional eye complaints, Denies blurry vision, Denies change in vision, Denies diplopia, Denies eye discharge, Denies loss of vision and Denies eye pain ENT: Denies dizziness Cardiovascular: Cardiovascular: Reports no additional cardiovascular complaints, Denies chest pain, Denies lightheadedness, Denies Loss of Consciousness and Denies dyspnea Respiratory: Respiratory: Reports no additional respiratory complaints and Denies dyspnea Gastrointestinal: Gastrointestinal: Reports no additional gastrointestinal complaints, Denies abdominal pain, Denies melena, Denies hematochezia, Denies change in bowel habits and Denies change in stool character Genitourinary: Genitourinary: Denies hematuria, Denies urinary frequency, Reports dysuria, Denies urinary incontinence, Denies urinary hesitancy and Denies urinary urgency Musculoskeletal: Musculoskeletal: Reports no additional musculoskeletal complaints, Denies numbness and Denies tingling Neurologic: Denies dizziness, Denies loss of vision, Denies numbness and Denies tingling Psychiatric: Psychiatric: Reports no additional psychiatric complaints Endocrine: Endocrine: Reports no additional endocrine complaints Hematologic/Lymphatic: Hematologic/Lymphatic: Reports no additional hematologic/lymphatic complaints Allergic/Immunologic: Allergic/Immunologic: Reports no additional allergic/immunologic complaints PMFSH Past Medical History Attestation statement: The following information was validated with the patient. (all information validated with the patient's daughter) Source: old records reviewed, obtained from family (patient's daughter provided additional history and confirmed the history provided by the patient) and nursing notes reviewed Medical History Stroke Leukemia Lymphoma Hypothyroidism Controlled diabetes mellitus without complication, with long-term current use of insulin Essential hypertension Hyperlipidemia LDL goal <70 Controlled diabetes mellitus without complication, without long-term current use of insulin Social History Social History Household Members: Family Household Members Other:: Spouse: Darnell Housing: House Do you presently have visiting nurse or other home services: No Alcohol intake: never Patient Tobacco Use Status: Never used Tobacco Smoked in Last 30 Days: No Use of substances other than those prescribed or required for medical reasons: No Advance Directives: No Advance Directives Information Provided: No Do you have a plan to hurt others: No Plan Patient : No service: No Current occupational status: retired Physical Exam ED Vital Signs: Vital Signs - 24 hr 05/10/24 18:05 05/10/24 19:38 05/10/24 21:39 Temperature 97.9 F 97.7 F 97.8 F Pulse Rate 85 75 71 Respiratory Rate 18 16 16 Blood Pressure 157/61 H 156/51 H 156/89 H Pulse Oximetry 96 94 95 Oxygen Delivery Method Room Air Room Air Room Air 05/10/24 23:09 Temperature 99.2 F Pulse Rate 72 Respiratory Rate 16 Blood Pressure 183/52 H Pulse Oximetry 95 Oxygen Delivery Method Room Air BMI result Body Mass Index 31.9 Const General: cooperative, no acute distress, alert and awake Nutritional Appearance: well nourished Orientation/consciousness: patient oriented x3 Limitations: no limitations HENMT Head: Yes normal to inspection and Yes atraumatic Ears: hearing grossly normal bilaterally and external ears normal General nose exam: Normal external nose present, no nasal discharge noted and no epistaxis Face and sinus: Yes normal facial exam, No abrasion and No laceration Mouth: Normal oral and palatal mucosa present, no drooling and no muffled voice Eyes General: appearance normal, both eyes and all related structures Periorbital: periorbital findings normal Eyelids: Yes eyelids normal Conjunctivae: conjunctivae normal Pupils: Equal, round and reactive pupils present EOM: EOMs intact bilaterally Neck Neck: Yes normal visual inspection, Yes full ROM and Yes no lymphadenopathy Chest Chest palpation & inspection: normal inspection of the chest Resp Effort & Inspection: normal respiratory effort and able to speak in complete sentences GI Inspection: Yes normal to inspection Neuro General: patient oriented x3 and moves all extremities Cranial nerves: Yes Equal, round and reactive pupils present Cognition (Neuro): normal cognition Motor exam (neuro): 5/5 motor strength present throughout Sensory Exam: Normal double simultaneous stimulation for sensation Coordination: [id number] test normal Extrem General: Yes normal to inspection, Yes full ROM and Yes capillary refill normal Psych Appearance: grossly normal Mental Status: mental status grossly normal Affect: normal affect Attitude: cooperative Thought process: Normal thought process present Thought content: Normal thought content present Insight: Good insight present (Psych) Course Course Course Narrative: This is a Rapid Medical Exam performed in triage by Demetra Carranza PA-C. Full HPI, ROS and PE to be performed by primary ED provider. 83 year-old F w/ PMHx presenting to the ED c/o dysuria, had outpatient labs/UA last week at [facility] & was told to come to the ED for IV abx due to resistances. denies fever, abd pain PE: in wheelchair Plan: labs, UA Medications Administered Discontinued Medications Generic Name Dose Route Start Last Admin Trade Name Freq PRN Reason Stop Dose Admin Ceftriaxone Sodium 1 gm/ 50 mls @ 100 mls/hr 05/10/24 22:30 05/11/24 00:01 Sodium Chloride IV 05/10/24 22:59 Infused ONCE ONE Infusion Iohexol 100 ml 05/10/24 20:02 05/10/24 20:02 Iohexol 350 Mg/Ml 100 Ml Infus..Btl IV 05/10/24 20:03 85 ml ONCE ONE Administration Lorazepam 1 mg 05/10/24 23:09 06/24/24 23:19 Lorazepam 2 Mg/Ml Vial IVPUSH 05/10/24 23:10 1 mg ONCE ONE Administration Medical Decision Making Medical Decision Making [facility] Narrative: Patient is a 83 year old assigned female at with a history of dementia, leukemia, and lymphoma presenting to the emergency department today with dysuria. Patient's physical exam was unremarkable. Patient's blood work showed a markedly elevated WBC count of 50.9 with high lymphs but were otherwise unremarkable. Patient's urine showed no acute process. Patient's chest x-ray showed no acute process. Patient's CT abdomen/pelvis showed no acute process. I called and spoke to Dr. Raygoza, the covering buttonhole machine operator/oncologist at [facility] who stated those levels were the patient's baseline and she was OK to discharge home. I explained my physical exam findings as well as all test results to the patient and the patient's daughter. I answered all questions asked by the patient and the patient's daughter. I stressed the importance of the patient taking her medication as prescribed. I stressed the importance of the patient following up with her primary care provider and her buttonhole machine operator/oncologist. I stressed the importance of the patient returning to the emergency department immediately if her symptoms were to worsen or if she were to develop any dizziness, shortness of breath, difficulty breathing, chest pain, blurry vision, loss of vision, nausea, vomiting, abdominal pain, fever, chills, back pain, or any other complaints. Patient and the patient's daughter verbalized agreement and understanding with this treatment plan and discharge. Differential Diagnosis Differential Diagnoses: The differential diagnosis associated with the presentation includes UTI Chronic leukocytosis Admission/Observation Consideration of admission/observation: Escalation of care including admission/observation considered Patient would have been admitted to the hospital had her work up had any findings where hospital admission was appropriate and her clinical presentation warranted hospital admission. Consult Healthcare Provider Management of the patient was discussed with: Orderly (spoke to the [facility] buttonhole machine operator/oncologist as noted in the MDM Rationale portion of this note.) Lab Data [facility] Lab Attestation statement: I reviewed the patient's lab results. My interpretation of these results are in the MDM Rationale portion of this note. 05/10/24 18:31 05/10/24 18:30 Labs: Lab Results 05/10/24 05/10/24 05/10/24 Range/Units 18:30 18:31 18:36 WBC 50.9 H* (4.8-10.8) X10*3/uL RBC 4.11 L (4.20-5.50) X10*6/uL Hgb 11.0 L (12.0-16.0) g/dl Hct 36.0 L (37.0-47.0) % MCV 87.6 (80.0-98.0) fL MCH 26.8 L (27.0-33.0) pg MCHC 30.6 L (31.0-35.0) g/dl RDW 16.2 H (11.0-16.0) % Plt Count 71 L (160-400) X10*3/uL MPV 13.3 H (9.4-12.3) fL Absolute Nucleated RBC 0.000 (0.0-0.012) X10*3/uL Nucleated RBC % (auto) 0.0 (0.0-0.2) /100WBC Neutrophils % (Manual) 6 L (45-73) % Band Neutrophils % 1 L (3-5) % Lymphocytes % (Manual) 93 H (20-40) % Abs Neuts (Manual) 3.6 (2.0-8.3) X10*3/uL Lymphocytes # (Manual) 47.3 H (1.2-4.9) X10*3/uL Platelet Estimate DECREASED (NORMAL) Plt Morphology Comment NORMAL RBC Morphology NORMAL Sodium 144 (135-145) mmol/L Potassium 4.3 (3.3-5.1) mmol/L Chloride 109 H (96-108) mmol/L Carbon Dioxide 27 (22-29) mmol/L Anion Gap 12 (12-20) BUN 29 H (9-16) mg/dL Creatinine 1.37 (0.5-1.4) mg/dL Estim Creat Clear Calc 33.2 Estimated GFR 37 Random Glucose 265 H (60-115) mg/dL Lactic Acid (0.5-2.0) mmol/L Calcium 9.5 (8.4-10.2) mg/dL Total Bilirubin 0.4 (0.0-1.0) mg/dL Direct Bilirubin 0.1 (0.0-0.5) mg/dL AST 25 (5-31) U/L ALT 18 (0-31) U/L Alkaline Phosphatase 118 H (39-117) U/L Total Protein 6.6 (6.5-8.0) g/dL Albumin 3.8 (3.5-5.0) g/dL Urine Color Yellow Urine Appearance Clear Urine pH 5.5 (5.0-9.0) Ur Specific Norton 1.020 (1.005-1.025) Urine Protein Trace (Neg-Trace) mg/dL Urine Glucose (UA) 100 H (Negative) mg/dL Urine Ketones Negative (Negative) mg/dL Urine Blood Negative (Negative) Urine Nitrite Negative (Negative) Ur Leukocyte Esterase Negative (Negative) Influenza Type A (PCR) (Negative) Influenza Type B (PCR) (Negative) RSV RNA Qual (PCR) (Negative) SARS-CoV-2 RNA (RT-PCR) (Negative) 05/10/24 05/10/24 Range/Units 18:47 20:43 WBC (4.8-10.8) X10*3/uL RBC (4.20-5.50) X10*6/uL Hgb (12.0-16.0) g/dl Hct (37.0-47.0) % MCV (80.0-98.0) fL MCH (27.0-33.0) pg MCHC (31.0-35.0) g/dl RDW (11.0-16.0) % Plt Count (160-400) X10*3/uL MPV (9.4-12.3) fL Absolute Nucleated RBC (0.0-0.012) X10*3/uL Nucleated RBC % (auto) (0.0-0.2) /100WBC Neutrophils % (Manual) (45-73) % Band Neutrophils % (3-5) % Lymphocytes % (Manual) (20-40) % Abs Neuts (Manual) (2.0-8.3) X10*3/uL Lymphocytes # (Manual) (1.2-4.9) X10*3/uL Platelet Estimate (NORMAL) Plt Morphology Comment RBC Morphology Sodium (135-145) mmol/L Potassium (3.3-5.1) mmol/L Chloride (96-108) mmol/L Carbon Dioxide (22-29) mmol/L Anion Gap (12-20) BUN (9-16) mg/dL Creatinine (0.5-1.4) mg/dL Estim Creat Clear Calc Estimated GFR Random Glucose (60-115) mg/dL Lactic Acid 1.2 (0.5-2.0) mmol/L Calcium (8.4-10.2) mg/dL Total Bilirubin (0.0-1.0) mg/dL Direct Bilirubin (0.0-0.5) mg/dL AST (5-31) U/L ALT (0-31) U/L Alkaline Phosphatase (39-117) U/L Total Protein (6.5-8.0) g/dL Albumin (3.5-5.0) g/dL Urine Color Urine Appearance Urine pH (5.0-9.0) Ur Specific Norton (1.005-1.025) Urine Protein (Neg-Trace) mg/dL Urine Glucose (UA) (Negative) mg/dL Urine Ketones (Negative) mg/dL Urine Blood (Negative) Urine Nitrite (Negative) Ur Leukocyte Esterase (Negative) Influenza Type A (PCR) NEGATIVE (Negative) Influenza Type B (PCR) NEGATIVE (Negative) RSV RNA Qual (PCR) NEGATIVE (Negative) SARS-CoV-2 RNA (RT-PCR) NEGATIVE (Negative) Independent Interpretation I performed an independent interpretation of an: Plain X-Ray and CT Scan Interpretation: My interpretation is in agreement with the radiologist's impression of these imaging studies. - EXAMINATION: CHEST 2 VIEWS CLINICAL INFORMATION: cough. COMPARISON: 04/01/2023. TECHNIQUE: AP frontal and lateral views of the chest obtained FINDINGS: The lungs are hypoexpanded with linear basilar markings more likely reflecting a component of atelectasis. No focal infiltrate, effusion, edema, or pneumothorax. Cardiac and mediastinal silhouettes are within normal limits for technique. No acute bony abnormality seen XR/XR chest 2V IMPRESSION: Hypoexpanded with linear basilar markings more likely reflecting a component of atelectasis. Dictated By: Candelario Browne MD Signed By: Electronically signed by Candelario Browne MD 05/10/242037 - EXAMINATION: CT ABDOMEN AND PELVIS WITH CONTRAST CLINICAL INFORMATION: abd pain, elevated WBC COMPARISON: None. TECHNIQUE: Multidetector volumetric imaging was performed from the superior aspect of the liver through the pubic symphysis following administration of 85 mL Omnipaque 300 intravenous contrast. Sagittal and coronal reformatted images were obtained on the technologist workstation.. This CT examination was performed using dose optimization techniques as appropriate, variously including the following: *Automated exposure control *Adjustment of mA and/or kV according to patient size (this includes techniques or standardized protocols for targeted exams where dose is matched to indication/reason for exam; i.e. extremities or head) *Use of iterative reconstruction technique DLP: 1182 mGy-cm FINDINGS: LUNG BASES: Dependent airspace changes more likely due to atelectasis. Prominent coronary artery calcification and aortic valvular calcifications LIVER, GALLBLADDER, AND BILIARY TREE: The liver is normal in size, shape, and attenuation. No focal hepatic lesion or biliary ductal dilatation is present. Air in the biliary tract may reflect biliary prior papillotomy which could be clinically correlated. Gallbladder surgically absent. PANCREAS: Unremarkable. SPLEEN: Unremarkable. ADRENAL GLANDS: Unremarkable. KIDNEYS AND URETERS: The kidneys are normal in size, shape, and attenuation. No hydronephrosis, hydroureter, or perinephric stranding. No calculi. BLADDER: Unremarkable. GASTROINTESTINAL TRACT: The small and large bowel are unremarkable. The appendix is is not well delineated but no focal inflammatory changes seen in the right lower quadrant.. ABDOMINAL WALL: No significant hernia is appreciated. LYMPHOVASCULAR STRUCTURES: Enlarged mediastinal lymph nodes are again seen. These have decreased in size and conspicuity however from the 08/05/2023 CT scan when they were much more prominent PELVIC VISCERA: Unremarkable. OSSEOUS STRUCTURES: Degenerative changes in the spine. Left sided hip screws CT/CT abdomen pelvis w IV con IMPRESSION: Chronic appearing changes as described above. Dictated By: Candelario Browne MD Signed By: Electronically signed by Candelario Browne MD 05/10/242220 Radiology Impression Discussion of test interpretation with radiology: I have reviewed the radiologist's reading. Independent Historian Clinical information obtained from an independent historian. History obtained from or confirmed by: Other (patient's daughter provided additional history and confirmed the history provided by the patient.) Critical Care Time Critical Care Time Critical Care Time: Yes Total Critical Care Time: 31 Attestation: I spent 31 minutes of Critical Care Time with this patient. This does not include time spent on separately reported billable procedures. Discharge Plan Discharge Clinical Impression: History of leukocytosis, Lymphoma Patient Disposition: Home, Self-Care Additional Instructions: Your work up today was reassuring. I called and spoke to the covering buttonhole machine operator / oncologist who recommended discharge home. Follow up with your primary care provider. Return to the emergency department immediately if your symptoms worsen or if you develop any dizziness, shortness of breath, difficulty breathing, chest pain, blurry vision, loss of vision, nausea, vomiting, abdominal pain, fever, chills, back pain, or any other complaints. Prescriptions: No Action quetiapine 25 mg Tablet 12.5 mg PO QID atorvastatin 40 mg Tablet 40 mg PO DAILY@1200 lisinopril 20 mg Tablet 20 mg PO DAILY melatonin 3 mg Tablet 3 mg PO BEDTIME olanzapine 2.5 mg Tablet 2.5 mg PO BEDTIME aspirin 81 mg Tablet,Delayed Release (Dr/Ec) 81 mg PO DAILY@1700 levothyroxine 100 mcg Tablet 100 mcg PO DAILY@0600 repaglinide 0.5 mg Tablet 0.5 mg PO DAILY Rx Instructions: administer within 30 minutes of a meal or snack. 0.5 mg in am, 1 mg in afternoon, 1 mg in evening repaglinide 0.5 mg Tablet 1 mg PO BID@1200,1700 Rx Instructions: administer within 30 minutes of a meal or snack. 0.5 mg in am, 1 mg in afternoon, 1 mg in evening paroxetine HCl 40 mg Tablet 40 mg PO DAILY@1200 metformin 500 mg tablet extended release 24 hr 500 mg PO BIDWM insulin glargine [Lantus Solostar U-100 Insulin] 100 unit/mL (3 mL) insulin pen 15 unit subcut BEDTIME ferrous sulfate 324 mg (65 mg iron) Tablet,Delayed Release (Dr/Ec) 324 mg PO DAILY 90 Days Qty: 90 0RF Lokelma 10 gram Powder In Packet 10 g PO DAILY 30 Days Qty: 30 0RF insulin lispro [Humalog KwikPen Insulin] 100 unit/mL insulin pen See Protocol subcut TID Qty: 15 2RF Protocol: Insulin Correction Scale Less than or equal to 110 ---- Give (units): 0 111 to 150 Give (units): 0 151 to 200 Give (units): 2 201 to 250 Give (units): 4 251 to 300 Give (units): 6 301 to 350 Give (units): 8 Greater than 350 Give (units): 10 Call MD if Blood Glucose > : 350 (DME) pen needle, diabetic [BD Ultra-Fine Laura Pen Needle] 32 gauge x 5/32 needle See Rx Instructions .ROUTE .MEDSUPPLY Qty: 50 Rx Instructions: As directed lorazepam 1 mg tablet 1 mg PO TID PRN (Reason: Anxiety) Referrals: Eliel Lerma DO [Primary Care Provider] - Print Language: Tuvaluan
[2024-05-10 18:53] LABS: Mean Corpuscular HGB Conc 30.6 g/dl (31.0-35.0); Mean Corpuscular Hemoglobin 26.8 pg (27.0-33.0); Mean Corpuscular Volume 87.6 fL (80.0-98.0); Mean Platelet Volume 13.3 fL (9.4-12.3); PLT CLUMP 1; Red Blood Count 4.11 X10*6/uL (4.20-5.50); Red Cell Distribution Width 16.2 % (11.0-16.0)
[2024-05-10 19:03] LABS: Lactic Acid 1.2 mmol/L (0.5-2.0)
[2024-05-10 19:06] LABS: Appearance Urine Clear; Color Urine Yellow; Glucose Urine UA 100 mg/dL (Negative); Leukocyte Esterase Urine Negative (Negative); Nitrite Urine Negative (Negative); PH 5.5 (5.0-9.0); Urine Blood Negative (Negative); Urine Ketones Negative (Negative); Urine Protein Trace mg/dL (Neg-Trace)
[2024-05-10 19:14] LABS: Alanine Aminotransferase 18 U/L (0-31); Albumin Level 3.8 g/dL (3.5-5.0); Alkaline Phosphatase 118 U/L (39-117); Anion Gap 12 (12-20); Aspartate Amino Transferase 25 U/L (5-31); Bilirubin Direct 0.1 mg/dL (0.0-0.5); Bilirubin Total 0.4 mg/dL (0.0-1.0); Blood Urea Nitrogen 29 mg/dL (9-16); Calcium 9.5 mg/dL (8.4-10.2); Carbon Dioxide 27 mmol/L (22-29); Chloride 109 mmol/L (96-108); Creatinine Clr Calc Pharmacy 33.2; Estimated Glomerular Filt Rate 37; Glucose Random 265 mg/dL (60-115); Potassium 4.3 mmol/L (3.3-5.1); Sodium 144 mmol/L (135-145); Total Protein 6.6 g/dL (6.5-8.0)
[2024-05-10 19:24] LABS: WBC ABN SCTR FOR CBC 1
[2024-05-10 19:28] LABS: Platelet Count 71 X10*3/uL (160-400)
[2024-05-10 19:30] LABS: White Blood Count 50.9 X10*3/uL (4.8-10.8)
[2024-05-10 19:38] VITALS: BP 156/51; PULSE 75; RESP 16; TEMP 36.5; O2SAT 94
[2024-05-10] MEDS: iohexoL 350 MG/ML 100 ML INFUS..BTL IV (20:02)
[2024-05-10 21:25] LABS: Influenza A PCR NEGATIVE (Negative); Influenza B PCR NEGATIVE (Negative); Resp Syncy Virus RNA Qual PCR NEGATIVE (Negative); SARS COV2 PCR INHOUSE NEGATIVE (Negative)
[2024-05-10 21:33] LABS: Band Neutrophils Percent 1 % (3-5); Lymphocytes Absolute Manual 47.3 X10*3/uL (1.2-4.9); Lymphocytes Percent Manual 93 % (20-40); Neutrophils Absolute Manual 3.6 X10*3/uL (2.0-8.3); Neutrophils Percent Manual 6 % (45-73)
[2024-05-10 21:34] LABS: Platelet Estimate DECREASED (NORMAL); RBC Morphology NORMAL
[2024-05-10 21:37] LABS: Platelet Morphology Comment NORMAL
[2024-05-10 21:39] VITALS: BP 156/89; PULSE 71; RESP 16; TEMP 36.6; O2SAT 95
[2024-05-10 23:09] VITALS: BP 183/52; PULSE 72; RESP 16; TEMP 37.3; O2SAT 95
--- NOTE | 2024-05-10 23:12 | MHC.EDTECH ---
Patient was incontinent of urine ,care given by this pct and lead pct Preethi ,bedding change and warm blanket given ,vitals taken ,RN Eduin is aware of Patient high bp ,pure wick in place ,Patient belonging list done ,Patient daughter at bedside .Call evangelista within patient reach ,Patient drank some cranberry juice .
[2024-05-10] MEDS: LORazepam 2 MG/ML VIAL 1 MG IVPUSH (23:19)
[2024-05-10] MEDS: cefTRIAXone sodium 1 GM in 0.9 % Sodium Chloride 50 ML IV (23:31)
--- NOTE | 2024-05-10 23:36 | PC.NURSE ---
pt had a 18g iv to L. AC which got ripped out while turning pt. new iv placed to R. hand 20g. pt medicated per mar for anxiety as pt becomes anxious being in the hospital. iv abx infusing per mar. family at bedside recliner provided. both resting comfortably. call evangelista within reach.
[2024-05-11 00:43] VITALS: BP 180/55; PULSE 69; RESP 16; TEMP 36.6; O2SAT 94
[2024-05-11 00:57] VITALS: BP 180/55; PULSE 69; RESP 16; TEMP 36.6; O2SAT 94
== END 2024-05-11 00:57 | disposition home or self-care (01) ==
PROVIDERS: Physician Assistant; Physician Assistant Medical; Emergency Provider Internal Medicine; PCP Family Medicine
DX: N39.0 Urinary tract infection, site not specified (principal); R05.9 Cough, unspecified; D72.829 Elevated white blood cell count, unspecified; R10.9 Unspecified abdominal pain; C85.90 Non-Hodgkin lymphoma, unspecified, unspecified site; Z79.899 Other long term (current) drug therapy; Z03.818 Encounter for observation for suspected exposure to other biological agents ruled out
CPT/HCPCS: 0241U; 36415; 71046; 74177; 80048; 80076; 81003; 83605; 85007; 85025; 85027; 87040; 96365; 96375; 99284; 99285; J0696; J2060; Q9967